=== PATIENT | female | born 2000 | race Caucasian/White ===

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

== ENCOUNTER 2022-01-09 20:16 | Inpatient (IN) | payer MEDICAID, SELFPAY ==
[2022-01-09] VITALS (43 sets, daily range): BP systolic 86–142; BP diastolic 45–72; PULSE 70–134; RESP 11–28; TEMP 36.8; O2SAT 86–100
--- NOTE | 2022-01-09 20:15 | RT.EKG_ITS ---
APPROVED REPORT Exam: Resting ECG Reason for Exam: od Patient Location: E HR:115 bpm ECG Measurements Heart Rate 115 AXIS NH 126 P 46 QRSd 76 QRS 52 QT 303 T 37 QTc 419 Conclusion Sinus tachycardia...rate> 99 Physician: no stemi, t wave peaking in V1. no significant st elevation or depression
[2022-01-09] MEDS: Normal Saline 1,000 ML 1000 ML IV ×2 (20:31→22:21)
[2022-01-09 20:42] LABS: Abs Immature Grans 0.02 10^3/uL (0.0-0.06); Absolute Basophil Count 0.04 10^3/uL (0.0-0.2); Absolute Eosinophil Count 0.17 10^3/uL (0.0-0.7); Absolute Lymphocyte Count 1.85 10^3/uL (1.2-3.4); Absolute Monocyte Count 0.72 10^3/uL (0.1-0.8); Absolute Neutrophil Count 5.57 10^3/uL (1.2-6.7); Basophils % 0.5; HCT 41.7 % (36.0-46.0); HGB 13.5 g/dL (11.2-15.7); Immature Grans % 0.2; Lymphocytes % 22.1; MCH 26.7 pg (27.0-33.0); MCHC 32.4 % (32.0-36.0); MCV 82 fL (80-95); Monocytes % 8.6; Neutrophils % 66.6; Platelet Count 298 10^3/uL (130-400); RBC 5.06 10^6/uL (3.93-5.22); RDW 12.4 % (11.7-14.6); RDW-SD 37.8 fL; WBC 8.37 10^3/uL (4.4-10.8)
--- NOTE | 2022-01-09 20:43 | ED.GENADUL_ITS ---
Discharge Plan Disposition Patient Disposition: [facility] INPATIENT Condition: Serious Discharge Details Clinical Impression: Overdose, Altered mental status, Suicide attempt Admit Date/Time: 01/09/22 22:07 Admit Provider: Jose Manuel Berkowitz Attending Provider: Jose Manuel Berkowitz Primary Care Provider: Frank Richter ED Provider: Azael Dowell Discharge Data Discharge Date/Time-TO BE ENTERED AT DEPARTURE: 01/10/22 00:10 Medical Decision Making This is a 21-year-old female who is transitioning to male, who presents today for evaluation of overdose. Patient has a past medical history of OCD, depression, previous self-harm, who presents via EMS. Patient and EMS state that 4 hours ago the patient states that he may have taken extra Lamictal. he take 25 mg Lamictal 3 times a day per the patient, and there were 50 missing tablets this evening. Patient states that he is unsure if I took any, but I am concerned I might have. In addition to this, the patient's risperidone bottle was empty, but it should have been empty 10 days ago if he has been taking it as directed but he states that he does not take as directed and may have had some extra. He denies any IV or illicit drug use. He does admit to previous self-harm, including previous superficial cutting. He states that he is not overly sure if he wants to end his life right now. He does not want hurt anyone else. He denies any chest pain abdominal pain or headache. He denies any numbness tingling or weakness. No other complaints at this time. He denies taking any other medication including aspirin or Tylenol. Physical exam demonstrates slightly drowsy patient, no evidence of new self-harm on the arms, but old scars are certainly present. No hyperreflexia. No clonus, no leadpipe rigidity. EKG shows slight peaking of T waves in V2, no STEMI, intervals are stable. Poison control was contacted and recommended supportive care. We will rehydrate, evaluate potential concerning etiologies, monitor closely and reassess. 10:45 PM Laboratory work-up reviewed the patient's laboratory work-up is returned very reassuring. No white count, bandemia or left shift. Electrolytes normal, CPK normal, salicylate and acetaminophen negative, urinary drug screen negative. Alcohol negative. EKG demonstrates no significant rhythm or interval abnormality. He does have mild sinus tachycardia. Patient remains notably fatigued, but he is arousable, saturating well, shows no signs of airway compromise stage. Discussed the case with the hospitalist, the patient will need prolonged observation and monitoring until he can be medically cleared. Suspect that he certainly did take medications as. We will continue to monitor and admit. Patient will be given continued fluids for rehydration. 11:22 PM Patient remained stable, however oxygenation slightly dropped. The patient did drop to the high 80s, 2 L of supplemental oxygen was applied and she tolerated this well, oxygenation is now 97%. Blood pressure remained stable, heart rate has come down to the 80s. Patient is still notably fatigued, but he is arousable still. We will place her on MedSurg overflow to the ICU for continued monitoring there. Dr. Berkowitz agrees with plan and will be placing admission orders. No indication for emergent intubation at this stage, however I did make it clear to the hospitalist and nursing will continue to make it clear to the ICU staff for continued monitoring and that he does have a decline in her oxygen saturation or respirations that we may need to reevaluate potential intubation in the future although this is not currently indicated at this stage of his management. I have extensively reviewed the treatment plan with the patient. I have addressed all patient concerns at this time. I have also discussed the plan with the admitting physician and they agree with the current assessment and plan and have agreed to assume responsibility for the patient. All parties demonstrate verbal understanding and agreement with our assessment and plan at this time. The documentation in this chart was dictated using [employer] dictation software. Please excuse any dictation errors. HPI General Date/Time Provider Initiated Documentation: 01/09/22 20:27 . HPI Narrative: This is a 21-year-old female who is transitioning to male, who presents today for evaluation of overdose. Patient has a past medical history of OCD, depression, previous self-harm, who presents via EMS. Patient and EMS state that 4 hours ago the patient states that he may have taken extra Lamictal. he take 25 mg Lamictal 3 times a day per the patient, and there were 50 missing tablets this evening. Patient states that he is unsure if I took any, but I am concerned I might have. In addition to this, the patient's risperidone bottle was empty, but it should have been empty 10 days ago if he has been taking it as directed but he states that he does not take as directed and may have had some extra. He denies any IV or illicit drug use. He does admit to previous self-harm, including previous superficial cutting. He states that he is not overly sure if he wants to end his life right now. He does not want hurt anyone else. He denies any chest pain abdominal pain or headache. He denies any numbness tingling or weakness. No other complaints at this time. He denies taking any other medication including aspirin or Tylenol. Related Data Home Medications Medication Instructions Recorded Confirmed clonidine HCl 0.1 mg tablet 0.1 mg PO BID 08/30/21 09/18/21 escitalopram oxalate 10 mg tablet 10 mg PO DAILY 08/30/21 09/18/21 (Lexapro) prazosin 2 mg capsule 2 mg PO HS 08/30/21 09/18/21 lamotrigine 25 mg tablet 75 tab PO HS 12/31/21 01/09/22 risperidone 0.5 mg tablet 0.5 tab PO HS 12/31/21 01/09/22 testosterone cypionate 200 mg/mL 1 applic IM QWEEK 12/31/21 01/09/22 intramuscular oil Allergies Allergy/AdvReac Type Severity Reaction Status Date / Time wool AdvReac Intermediate Hives Unverified 01/09/22 20:25 General Stated Complaint: OD/Poison ADRIANA: 2 Review of Systems All systems reviewed & are unremarkable except as noted in HPI and below PFSH All Active Problems (Updated 01/09/22 @ 23:25 by Azael Dowell DO) Overdose (Acute) Altered mental status (Acute) Suicide attempt (Acute) OD (overdose of drug) (Acute) Deliberate self-cutting (Acute) 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 Depression (Chronic) 09/2021-Suidice attempt, clonidine overdose, hospitalized at [facility]-required short term intubation Tonsillar hypertrophy (Acute) Sensorineural hearing loss, unilateral, right ear, with unrestricted hearing on the contralateral side (Acute) OCD (obsessive compulsive disorder) (Acute) Medical History Clonidine overdose Depression Transgender Family History Mother Essential hypertension Heart disease Hyperlipidemia Father COPD (chronic obstructive pulmonary disease) Sister Asthma Brother No problems noted. Grandfather Diabetes Essential hypertension Heart disease Hyperlipidemia Grandfather Neoplasm LUNG Grandmother No problems noted. Grandmother Diabetes Essential hypertension Heart disease Hyperlipidemia Neoplasm BREAST Stroke Social History Smoking/Tobacco Use Status: Never Smoking risk assessment performed?: Yes Alcohol Intake: never Drug use: Never Substance use type: does not use Do you feel safe at home: Yes (Lives alone) Do you feel safe in your relationship?: No Additional Social history: Patient unable to give further details at this time. Exam Narrative Exam Narrative: 1.Const: Well-nourished, Well-developed, appearing stated age 2.Eyes: PERRL, no conjunctival injection, and symmetrical lids. 3.ENT: Atraumatic external nose and ears. Moist MM. Neck: Symmetric, trachea midline, No thyromegaly. Patient demonstrates good movement of cervical neck. There is no nuchal rigidity, no nuchal tenderness. Patient is able to flex the neck without any difficulty or significant pain. Negative Kernig's and Brudzinski sign. 4.CVS: +S1/S2, No murmurs or gallops. Peripheral pulses 2+ and equal in all extremities. Brisk capillary refill in all extremities. 5.RESP: Unlabored respiratory effort. Clear to auscultation bilaterally. No wheezes rales or rhonchi 6.GI: Soft, Nontender/Nondistended, No hepatosplenomegaly. No guarding or rebound. 7.MSK: Normocephalic/Atraumatic, Extremities w/o deformity or ttp No cyanosis or clubbing, Normal movement of all extremities 8.Skin: Warm, Dry. Previous self-inflicted wounds on the upper extremities, no active lacerations. No evidence of bleeding. 9.Neuro: sample mounter II-XII grossly intact. Sensation grossly intact, no focal neurologic deficits. All 6 cardinal planes of vision are fully intact. No evidence of rotatory or vertical nystagmus. The patient demonstrated a normal [id number], good dexterity. There was no evidence of dysdiadochokinesia. Patient was able to ambulate without difficulty. There was no wide-based gait. Romberg testing was normal. Clsb-[id number] testing was normal. Sensation was intact bilaterally as well as muscle strength bilaterally for all extremities. Patient was able to verbalize butter cup with no slurring, or miss pronunciation. 10.Psych: (AAO) x3. Slightly diminished affect, patient appears slightly sleepy, but is appropriate, able to answer all questions, and guarding airway very well. Course Vital Signs Vital signs: Vital Signs Temperature 36.8 C 01/09/22 20:17 Pulse 130 H 01/09/22 20:17 Respiratory Rate 19 01/09/22 20:17 Blood Pressure 142/62 H 01/09/22 20:17 Pulse Oximetry 98 01/09/22 20:17 Temperature 36.8 C 01/09/22 20:17 Temperature Source Skin 01/09/22 20:17 Pulse 130 H 01/09/22 20:17 Respiratory Rate 15 01/09/22 20:25 Respiratory Effort 01/09/22 20:25 Respiratory Depth Normal 01/09/22 20:25 Respiratory Pattern Normal 01/09/22 20:25 Blood Pressure 142/62 H 01/09/22 20:17 Blood Pressure Position Sitting 01/09/22 20:17 Pulse Oximetry 98 01/09/22 20:17 Oxygen Delivery Method Room Air 01/09/22 20:17 Oxygen Flow Rate 0 01/09/22 20:17
[2022-01-09 20:55] LABS: Creatine Kinase 71 U/L (26-192)
[2022-01-09 20:59] LABS: ALT 16 U/L (14-59); AST 11 U/L (15-37); Albumin 4.1 g/dL (3.4-5.0); Alkaline Phosphatase 88 U/L (46-116); Anion Gap 10.8 mmol/L (3-11); BUN 10 mg/dL (7-18); Bilirubin, Total 0.2 mg/dL (0.2-1.0); CO2 24.2 mmol/L (21.0-32.0); CREATININE 0.7 mg/dL (0.55-1.02); Chloride 104 mmol/L (98-107); Glucose 125 mg/dL (74-106); Magnesium 2.1 mg/dL (1.8-2.4); Potassium 3.5 mmol/L (3.5-5.1); Sodium 139 mmol/L (136-145)
[2022-01-09 21:02] LABS: ETHANOL BLOOD < 3.0 mg/dL (<10)
[2022-01-09 21:03] LABS: Salicylate < 2.8 mg/dL (<2.8)
[2022-01-09 21:05] LABS: Acetaminophen < 2 ug/mL (10-30)
--- NOTE | 2022-01-09 21:49 | W.PM.HP.N ---
Date of service: 01/09/22 Time of Service: 20:49 Assessment and Plan Assessment and plan (1) OD (overdose of drug): Status: Acute Assessment and plan: Probable drug OD, at this point manifesting with somnolence, soft BP and sinus tachycardia. Will continue general supportive measures with IVF, telemetry and continue to monitor hemodynamics. History of Present Illness History of Present Illness Chief Complaint: possible drug OD Narrative: 21 female transitioning to male, h/o depression, OCD, prior self-harm. This evening reported to family that she might have taken some extra Lamictal (per pill counts, 50 pills missing, but there is additional report that patient may not take meds as directed). EMS summoned. Here in ER patient noted to be somnolent but arousable, and repeated that she was not sure if she had taken any extra pills. Stated she was not sure if she had any active intent to harm. Exam of note otherwise for sinus tachycardia and superficial lacerations left forearm. Labs of note for normal CBC and electrolytes, and EKG with normal intervals (sinus tach). Alcohol, ASA and APAP negative, remainder UDS pending. I was asked to evaluate for admission. Patient arouses to voice during interview but somnolent and uncommunicative. 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 Grandfather Diabetes Essential hypertension Heart disease Hyperlipidemia Grandfather Neoplasm LUNG Grandmother No problems noted. Grandmother Diabetes Essential hypertension Heart disease Hyperlipidemia Neoplasm BREAST Stroke Social History Smoking/Tobacco Use Status: Never Smoking risk assessment performed?: Yes Alcohol Intake: never Drug use: Never Substance use type: does not use Do you feel safe at home: Yes (Lives alone) Do you feel safe in your relationship?: No Additional Social history: Patient unable to give further details at this time. Meds Allergies and Home Medications Allergies Allergy/AdvReac Type Severity Reaction Status Date / Time wool AdvReac Intermediate Hives Unverified 01/09/22 20:25 Home Medications Medication Instructions Recorded Confirmed Type clonidine HCl 0.1 mg tablet 0.1 mg PO BID 08/30/21 09/18/21 History escitalopram oxalate 10 mg tablet 10 mg PO DAILY 08/30/21 09/18/21 History (Lexapro) prazosin 2 mg capsule 2 mg PO HS 08/30/21 09/18/21 History lamotrigine 25 mg tablet 75 tab PO HS 12/31/21 01/09/22 History risperidone 0.5 mg tablet 0.5 tab PO HS 12/31/21 01/09/22 History testosterone cypionate 200 mg/mL 1 applic IM QWEEK 12/31/21 01/09/22 History intramuscular oil Exam Narrative Exam Narrative: 98/54, 97, 36.8, 14, 96% RA. HEENT atraumatic; neck supple; lungs clear; heart tachy/regual w/o MRG; abdomen +BS, soft and NT; extremities w/o edema, multiple recent superficial transverse lacerations left forearm; neuro somnolent, arouses to voice, moves all 4s Results Labs Result diagrams: 01/09/22 20:29 01/09/22 20:29 Labs: Laboratory Results - last 24 hr 01/09/22 01/09/22 01/09/22 20:29 20:29 20:29 WBC 8.37 RBC 5.06 Hgb 13.5 Hct 41.7 MCV 82 MCH 26.7 L MCHC 32.4 RDW 12.4 Plt Count 298 MPV 11.0 Immature Gran % 0.2 Neutrophils % 66.6 Lymphocytes % 22.1 Monocytes % 8.6 Eosinophils % 2.0 Basophils % 0.5 Nucleated RBC % 0.0 Absolute Neutrophils 5.57 Absolute Lymphocytes 1.85 Absolute Monocytes 0.72 Absolute Eosinophils 0.17 Absolute Basophils 0.04 Sodium 139 Potassium 3.5 Chloride 104 Carbon Dioxide 24.2 Anion Gap 10.8 BUN 10 Creatinine 0.7 Estimated GFR/1.73 m2 >= 60.00 Glucose 125 H Calcium 9.0 Magnesium 2.1 Total Bilirubin 0.2 AST 11 L ALT 16 Alkaline Phosphatase 88 Creatine Kinase Total Protein 8.0 Albumin 4.1 Salicylates < 2.8 Acetaminophen < 2 Ethyl Alcohol < 3.0 01/09/22 20:29 WBC RBC Hgb Hct MCV MCH MCHC RDW Plt Count MPV Immature Gran % Neutrophils % Lymphocytes % Monocytes % Eosinophils % Basophils % Nucleated RBC % Absolute Neutrophils Absolute Lymphocytes Absolute Monocytes Absolute Eosinophils Absolute Basophils Sodium Potassium Chloride Carbon Dioxide Anion Gap BUN Creatinine Estimated GFR/1.73 m2 Glucose Calcium Magnesium Total Bilirubin AST ALT Alkaline Phosphatase Creatine Kinase 71 Total Protein Albumin Salicylates Acetaminophen Ethyl Alcohol Last Vital Signs Temp 36.8 C 01/09/22 20:17 Pulse 93 H 01/09/22 20:45 Resp 14 01/09/22 20:50 BP 98/54 L 01/09/22 20:45 Pulse Ox 96 01/09/22 20:50
[2022-01-09 22:42] LABS: *AMPHETAMINES SCREEN URINE Negative (Negative); *BARBITURATES SCREEN URINE Negative (Negative); *BENZODIAZEPINES SCREEN URINE Negative (Negative); Cannabinoids THC Negative (Negative); Cocaine Screen,Urine Negative (Negative); METHADONE URINE SCREEN Negative (Negative); OPIATES URINE SCREEN Negative (Negative)
[2022-01-09 22:48] LABS: Tricyclic Antidepressants Negative (Negative)
[2022-01-10] VITALS (31 sets, daily range): BP systolic 55–125; BP diastolic 38–85; PULSE 73–120; RESP 9–17; TEMP 36.2–37.5; O2SAT 99–100
[2022-01-10] MEDS: Lactated Ringers 1,000 ML 150 ML IV ×4 (00:43→20:02)
[2022-01-10 07:53] LABS: Abs Immature Grans 0.03 10^3/uL (0.0-0.06); Absolute Basophil Count 0.02 10^3/uL (0.0-0.2); Absolute Eosinophil Count 0.05 10^3/uL (0.0-0.7); Absolute Lymphocyte Count 1.32 10^3/uL (1.2-3.4); Absolute Neutrophil Count 6.75 10^3/uL (1.2-6.7); Basophils % 0.2; Eosinophils % 0.6; HCT 38.3 % (36.0-46.0); HGB 12.1 g/dL (11.2-15.7); Immature Grans % 0.3; Lymphocytes % 15.1; MCH 26.7 pg (27.0-33.0); MCHC 31.6 % (32.0-36.0); MCV 84 fL (80-95); MPV 10.9 fL (8.0-11.0); Monocytes % 6.8; Platelet Count 253 10^3/uL (130-400); RBC 4.54 10^6/uL (3.93-5.22); RDW 12.5 % (11.7-14.6); RDW-SD 38.4 fL; WBC 8.77 10^3/uL (4.4-10.8)
[2022-01-10 08:11] LABS: ALT 13 U/L (14-59); AST 10 U/L (15-37); Albumin 3.4 g/dL (3.4-5.0); Alkaline Phosphatase 71 U/L (46-116); Anion Gap 5.7 mmol/L (3-11); BUN 3 mg/dL (7-18); Bilirubin, Direct 0.1 mg/dL (0.0-0.2); Bilirubin, Total 0.3 mg/dL (0.2-1.0); CO2 28.3 mmol/L (21.0-32.0); CREATININE 0.9 mg/dL (0.55-1.02); Calcium 8.2 mg/dL (8.5-10.1); Chloride 106 mmol/L (98-107); Glucose 105 mg/dL (74-106); Magnesium 1.9 mg/dL (1.8-2.4); Potassium 3.7 mmol/L (3.5-5.1); Sodium 140 mmol/L (136-145); Total Protein 6.9 g/dL (6.4-8.2)
[2022-01-10 10:13] LABS: Source Nasal/Nares
[2022-01-10 11:04] LABS: COVID-19 PCR Negative (Negative)
--- NOTE | 2022-01-10 11:22 | INITIAL_ITS ---
- If Service Date Differs Date of service: 01/10/22 Time of Service: 11:22 Care Management Initial Assess REASON FOR HOSPITALIZATION:: OD PAST MEDICAL HISTORY/PAST SURGICAL HISTORY:: All Active Problems (Updated 01/09/22 @ 22:02 by Jos eManuel Berkowitz MD). OD (overdose of drug) (Acute). Deliberate self-cutting (Acute). Transgender (Acute). female to male. Depression (Chronic). 09/2021-Suidice attempt, clonidine overdose, hospitalized at [facility]-required short term intubation. Tonsillar hypertrophy (Acute). Sensorineural hearing loss, unilateral, right ear, with unrestricted hearing on the contralateral side (Acute). OCD (obsessive compulsive disorder) (Acute). Medical History. Clonidine overdose. Depression. Transgender PREVIOUS FUNCTIONAL STATUS/SOCIAL/FAMILY SUPPORTS:: Júnior [place] in a [place] in [facility]. He has 2 sisters, but stated he is not close to them or his parents. He identifies [facility] as his only source of support. He is independent at baseline. CURRENT FUNCTIONAL STATUS:: Júnior was sitting up in bed when CM met with him. He appeared sad and was very soft spoken, answering questions but not volunterering information . During the conversation CM asked if he remembers what happened yesterday and he stated that he did not. He acknowledged being very sleepy now and believes he took extra medication. He was unsure why. CM explained that if he is medically cleared tomorrow, he will likley be seen by an [facility] crisis screener. When various possible outcomes were discussed, Júnior informed CM that he would not feel safe going home. He indicated that he would like to go to an inpatient psychiatric treatment facility. Has patient been provided with info about the portal/API?: Yes Did the patient sign up for the portal?: Yes (previously) CODE STATUS:: Full Code INSURANCE COVERAGE / FINANCIAL ISSUES:: Medicaid CURRENT HOME/COMMUNITY SERVICES/EQUIPMENT:: lives in transitional housing PRIMARY CARE PHYSICIAN:: Frank Richter POTENTIAL DISCHARGE NEEDS:: Follow up with PCP and plan of care. It is possible Júnior will require inpatient admission for psychiatric stabilization if this was determined to be a suicide. attempt. PATIENT/FAMILY EDUCATION NEEDS:: review of discharge instructions, follow up plan, medication management, Ask Me Three TRANSPORTATION:: to be determined by disposition PLAN:: Júnior's discharge plan is unclear at this time as he has not been screened by mental health. Júnior verbalizes being uncertain if he actually took and OD of his medication and if so, if it was his intention to harm himself. CM will continue to provide support to Júnior and hid discharge needs.
--- NOTE | 2022-01-10 11:38 | PGE_ITS ---
Date of Service Date of service: 01/10/22 Time of Service: 10:38 Assessment and Plan Assessment and plan (1) OD (overdose of drug): Status: Acute Assessment and plan: Patient is not able to tell us the circumstances behind this overdose. Checking lamictal level - it is a send out. Will monitor mental status until patient back to baseline, then consult mental health. Continue CPSO. Ok to permit a clear liquid diet. Subjective Subjective Interval history since last seen: Júnior states that he is still feeling drowsy and had an abdominal pain (mid- abdominal). Had dry heaves, but no vomiting this am. No dizziness, chest pain, shortness of breath. Per Poison Control, most cardiac side effects are expected to be within the first 6 hrs of ingestion. Júnior thinks he took 40-50 25 mg pills of lamictal, but does not remember. He also does not remember why he took so many and states that he has a really bad memory for some reason. He is on lamictal for bipolar disorder. Exam Narrative Exam Narrative: General: A&Ox3, poor recall of events yesterday, no obvious focal deficits HEENT: EOMI, MMM Heart: RRR, no m/r/g Lungs: CTAB Abdomen: soft, nontender, nondistended Extremities: no edema BLEs, BUE (L>R) superficial healing incisions, no active bleeding or sign of infection Objective Last Vital Signs Temp 37 C 01/10/22 11:35 Pulse 108 H 01/10/22 11:00 Resp 16 01/10/22 11:35 BP 105/69 01/10/22 11:00 Pulse Ox 99 01/10/22 11:35 Laboratory Results - last 24 hr 01/09/22 01/09/22 01/09/22 20:29 20:29 20:29 WBC 8.37 RBC 5.06 Hgb 13.5 Hct 41.7 MCV 82 MCH 26.7 L MCHC 32.4 RDW 12.4 Plt Count 298 MPV 11.0 Immature Gran % 0.2 Neutrophils % 66.6 Lymphocytes % 22.1 Monocytes % 8.6 Eosinophils % 2.0 Basophils % 0.5 Nucleated RBC % 0.0 Absolute Neutrophils 5.57 Absolute Lymphocytes 1.85 Absolute Monocytes 0.72 Absolute Eosinophils 0.17 Absolute Basophils 0.04 Sodium 139 Potassium 3.5 Chloride 104 Carbon Dioxide 24.2 Anion Gap 10.8 BUN 10 Creatinine 0.7 Estimated GFR/1.73 m2 >= 60.00 Glucose 125 H Calcium 9.0 Magnesium 2.1 Total Bilirubin 0.2 Conjugated Bilirubin AST 11 L ALT 16 Alkaline Phosphatase 88 Creatine Kinase Total Protein 8.0 Albumin 4.1 Salicylates < 2.8 Urine Opiates Screen Urine Methadone Screen Acetaminophen < 2 Ur Barbiturates Screen Ur Tricyclics Screen Ur Amphetamines Screen U Benzodiazepines Scrn Urine Cocaine Screen Ur THC Screen Ethyl Alcohol < 3.0 COVID-19 Source SARS-CoV-2 (PCR) 01/09/22 01/09/22 01/10/22 20:29 22:20 07:50 WBC RBC Hgb Hct MCV MCH MCHC RDW Plt Count MPV Immature Gran % Neutrophils % Lymphocytes % Monocytes % Eosinophils % Basophils % Nucleated RBC % Absolute Neutrophils Absolute Lymphocytes Absolute Monocytes Absolute Eosinophils Absolute Basophils Sodium 140 Potassium 3.7 Chloride 106 Carbon Dioxide 28.3 Anion Gap 5.7 BUN 3 L Creatinine 0.9 Estimated GFR/1.73 m2 >= 60.00 Glucose 105 Calcium 8.2 L Magnesium 1.9 Total Bilirubin 0.3 Conjugated Bilirubin 0.1 AST 10 L ALT 13 L Alkaline Phosphatase 71 Creatine Kinase 71 Total Protein 6.9 Albumin 3.4 Salicylates Urine Opiates Screen Negative Urine Methadone Screen Negative Acetaminophen Ur Barbiturates Screen Negative Ur Tricyclics Screen Negative Ur Amphetamines Screen Negative U Benzodiazepines Scrn Negative Urine Cocaine Screen Negative Ur THC Screen Negative Ethyl Alcohol COVID-19 Source SARS-CoV-2 (PCR) 01/10/22 01/10/22 07:50 10:00 WBC 8.77 RBC 4.54 Hgb 12.1 Hct 38.3 MCV 84 MCH 26.7 L MCHC 31.6 L D RDW 12.5 Plt Count 253 MPV 10.9 Immature Gran % 0.3 Neutrophils % 77.0 Lymphocytes % 15.1 Monocytes % 6.8 Eosinophils % 0.6 Basophils % 0.2 Nucleated RBC % 0.0 Absolute Neutrophils 6.75 H Absolute Lymphocytes 1.32 Absolute Monocytes 0.60 Absolute Eosinophils 0.05 Absolute Basophils 0.02 Sodium Potassium Chloride Carbon Dioxide Anion Gap BUN Creatinine Estimated GFR/1.73 m2 Glucose Calcium Magnesium Total Bilirubin Conjugated Bilirubin AST ALT Alkaline Phosphatase Creatine Kinase Total Protein Albumin Salicylates Urine Opiates Screen Urine Methadone Screen Acetaminophen Ur Barbiturates Screen Ur Tricyclics Screen Ur Amphetamines Screen U Benzodiazepines Scrn Urine Cocaine Screen Ur THC Screen Ethyl Alcohol COVID-19 Source Nasal/Nares SARS-CoV-2 (PCR) Negative
[2022-01-11] MEDS: Lactated Ringers 1,000 ML 150 ML IV ×2 (02:19→08:59)
[2022-01-11 03:19] VITALS: BP 105/69; PULSE 64; RESP 18; TEMP 36.6; O2SAT 97
[2022-01-11 07:00] VITALS: BP 107/69; PULSE 94; RESP 20; TEMP 36.5; O2SAT 98
[2022-01-11 07:09] VITALS: PULSE 72
[2022-01-11 10:38] VITALS: PULSE 105
--- NOTE | 2022-01-11 16:44 | PDOC.CMSAFE ---
- If Service Date Differs Date of service: 01/11/22 Time of Service: 16:44 Care Management Safety Plan Status: Voluntary - Reason for Wait Reason for Wait: Inpatient Admission VOLUNTARY FOR INPATIENT PSYCHIATRIC STABILIZATION. Patient is appropriate in all interactions since arriving at [facility]; Pt has demonstrated appropriate coping and communication skills, has articulated his needs and concerns and is fully engaged during staff interactions. Safety plan has been established with patient, and care team, to adhere to patient goals, identify restrictions based on behavioral status, address nutrition, and determine allowed personal belongings, tools for hygiene and personal care. Determine level of activity including ambulation, level of supervision, visitors, and determine privileges based on behaviors and level of engagement by pt. SAFETY PLAN: 1. Will remain on suicide precautions. In Paper Clothes 2. Will remain in room under direct supervision of one-on-one staff at all times provided by CPSO; PIPER, SALON PROFESSIONAL curb worker. 3. May have paper cups, plates, finger foods as well as a cardboard spoon with which to eat meals. 4. Follow [facility] Management of the Admitted Behavioral Health Patient policy. 5. Shower permitted with escort at RN discretion. 6. No personal belongings-soft items permitted at RN discretion. 7. Visitors-none at this time. 8. Activities: soft cart items approved per RN discretion. 9. Bathroom privileges available in room without limitation on M/S. 10. Phone: contact limited to sister at this time, via cordless phone at RN discretion. 11. Due to VOLUNTARY status, if patient wishes to leave [facility], staff will contact [facility] Crisis Screener ([phone]) and On-Call District Manager Primary Care Sales ([phone]) as soon as possible. In the event of elopement, notify [facility] Police ([phone]). Patient is currently voluntarily at [facility] and seeking inpatient admission when a bed becomes available. [facility] Frontline Clerk Cashier will continue seeking placement. Please contact the Coverage Specialist District Manager Primary Care Sales ([phone]) and [facility] Clerk Cashier ([phone]) for any needed changes in the Safety Plan. Safety plan has been provided to interdepartmental care team.
--- NOTE | 2022-01-11 17:08 | W.PM.PROGNOT ---
Date of Service Date of service: 01/11/22 Time of Service: 15:00 Assessment and Plan Assessment and plan (1) OD (overdose of drug): Status: Acute Assessment and plan: Patient is not able to tell us the circumstances behind this overdose. Lamictal level not back yet Mental status is back to baseline; seen by mental health, awaiting acceptance @ [facility]. Continue CPSO. Vital signs are stable Ok to permit solid diet. Agreeable and in fact excited to go to [facility], he has been there before and felt it is beneficial and comfortable for him. Case mgt is working on acceptance/transfer. (2) Deliberate self-cutting: Status: Acute Assessment and plan: Superficial cuts to bilateral lower arms, not hot, no pus, no dressing neededl; denies pain, will monitor for signs of infection (3) Transgender: Status: Acute Assessment and plan: Transitioning from female to male; taking testosterone - will need medication from home to go with him to [place] Subjective Subjective Patient reports: no new complaints Exam Narrative Exam Narrative: General: A&Ox3, poor recall of events yesterday, no obvious focal deficits HEENT: EOMI, MMM Heart: RRR, no m/r/g Lungs: CTAB Abdomen: soft, nontender, nondistended Extremities: no edema BLEs, BUE (L>R) superficial healing incisions, no active bleeding or sign of infection Objective Last Vital Signs Temp 36.5 C 01/11/22 07:00 Pulse 105 H 01/11/22 10:38 Resp 20 01/11/22 07:00 BP 107/69 01/11/22 07:00 Pulse Ox 98 01/11/22 07:00 Reviewed Pertinent PMH: Yes
[2022-01-12 10:51] VITALS: BP 108/76; PULSE 84; RESP 16; TEMP 36.7; O2SAT 96
[2022-01-12 12:59] LABS: Lamotrigine 15.8 mcg/mL (2.5 - 15.0)
--- NOTE | 2022-01-12 13:03 | NUR.NOTE ---
Nursing Note: Patient made aware that the patients home medication- Testosterone Cypionate 200Mg/mL, is now available here. Patient states he takes 250mg at home. The order on the label states Inject 0.5mL into the muscle once weekly. This RN called Bruno Govea in [facility] to verify dosage. Pharmacist verified that the dose should be 0.5mL, which is 100mg weekly. Patient agreed to take this dose. Charge nurse notified.
--- NOTE | 2022-01-12 14:48 | PDOC.MHCN ---
Date of service: 01/11/22 Time of Service: 13:48 Mental Health Crisis Note Presenting Issue How did you arrive at the ED and why did you come: Pt arrived on 01.09.2022 after an unintentional overdose of her medications. Pt reported that they blacked out. Precipitating Factors Pt denied SI at the time of the assessment but rated their risk if they were to go home an 8/10 due ot not knowing when they would do it again. Disposition BEHAVIOR: Pt is calm, cooperative, and soft spoken. They were engaged appropriately with their CPSO when this clinician entered the room. EYE CONTACT: Pt made good eye contact. MOOD: Pt's mood appeared happy and engaged with CPSO. AFFECT: Pt's affect is normal. APPETITE: Pt reported they are eating fine. SLEEP(trouble falling/staying asleep: Pt reported that they are struggling to sleep as they are seeing people without faces and hearing voices in the davies. Plan PT will remain at [facility] and be assessed daily by [facility]. Due to Pt's report and observed disassociation it is this clinician's belief that they pose a risk to self if they returned home. Signature Clinician's Name/Title: Suzy Newsome MS, [facility] Emergency Services Clinician, [facility]
--- NOTE | 2022-01-12 16:09 | PGE_ITS ---
Date of Service Date of service: 01/12/22 Time of Service: 15:10 Assessment and Plan Assessment and plan (1) OD (overdose of drug): Status: Acute Assessment and plan: Mental status is back to baseline; medically cleared seen by mental health, awaiting acceptance @ [facility]. Continue CPSO. Vital signs are stable Ok to permit solid diet. Agreeable and in fact excited to go to [facility], he has been there before and felt it is beneficial and comfortable for him. Case mgt is working on acceptance/transfer. (2) Deliberate self-cutting: Status: Acute Assessment and plan: Superficial cuts to bilateral lower arms, not hot, no pus, no dressing neededl; denies pain, will monitor for signs of infection (3) Transgender: Status: Acute Assessment and plan: Transitioning from female to male; taking testosterone - will need medication from home to go with him to [place] Weekly dose given today Discussed with DR Flowers Subjective Subjective Patient reports: no new complaints, tolerating liquids well, tolerating a regular diet and afebrile Exam Const General: cooperative, healthy appearing and comfortable Nutritional Appearance: average body habitus Orientation: alert, awake and oriented x3 HENMT Head: normal to inspection and normocephalic Mouth: oral mucosae normal Resp Effort & Inspection: normal respiratory effort Auscultation: clear to auscultation bilaterally Cardio Rate: regular rate Rhythm: regular rhythm Neuro General: patient alert and patient awake Extrem General: normal to inspection and full ROM Objective Last Vital Signs Temp 36.7 C 01/12/22 10:51 Pulse 84 01/12/22 10:51 Resp 16 01/12/22 10:51 BP 108/76 01/12/22 10:51 Pulse Ox 96 01/12/22 10:51 Laboratory Results - last 24 hr 01/10/22 10:05 Lamotrigine 15.8
--- NOTE | 2022-01-12 16:13 | PDOC.CMSAFE ---
- If Service Date Differs Date of service: 01/12/22 Time of Service: 16:13 Care Management Safety Plan Status: Voluntary - Reason for Wait Reason for Wait: Inpatient Admission VOLUNTARY FOR INPATIENT PSYCHIATRIC STABILIZATION. Patient is appropriate in all interactions since arriving at [facility]; Pt has demonstrated appropriate coping and communication skills, has articulated his needs and concerns and is fully engaged during staff interactions. Safety plan has been established with patient, and care team, to adhere to patient goals, identify restrictions based on behavioral status, address nutrition, and determine allowed personal belongings, tools for hygiene and personal care. Determine level of activity including ambulation, level of supervision, visitors, and determine privileges based on behaviors and level of engagement by pt. SAFETY PLAN: 1. Will remain on suicide precautions. In Paper Clothes 2. Will remain in room under direct supervision of one-on-one staff at all times provided by CPSO; PIPER, SUPERVISOR CONCRETE PIPE PLANT sports internship. 3. May have paper cups, plates, finger foods as well as a cardboard spoon with which to eat meals. 4. Follow [facility] Management of the Admitted Behavioral Health Patient policy. 5. Shower permitted with escort at RN discretion. 6. No personal belongings-soft items permitted at RN discretion. 7. Visitors-none at this time. 8. Activities: soft cart items approved per RN discretion. 9. Bathroom privileges available in room without limitation on M/S. 10. Phone: contact limited to sister at this time, via cordless phone at RN discretion. 11. Due to VOLUNTARY status, if patient wishes to leave [facility], staff will contact [facility] Crisis Screener ([phone]) and On-Call Audio Visual Director ([phone]) as soon as possible. In the event of elopement, notify [facility] Police ([phone]). Patient is currently voluntarily at [facility] and seeking inpatient admission when a bed becomes available. [facility] Frontline Fiberglass Laminator will continue seeking placement. Please contact the Director Smb Sales Audio Visual Director ([phone]) and [facility] Fiberglass Laminator ([phone]) for any needed changes in the Safety Plan. Safety plan has been provided to interdepartmental care team.
--- NOTE | 2022-01-12 16:15 | PDOC.CMPRO ---
- If Service Date Differs Date of service: 01/12/22 Time of Service: 16:15 Care Management Progress Note S/O: Júnior was sitting up on his bed when CM met with him. He was pleasant but informed CHIARA that he is feeling really anxious today. CHIARA asked if he normallty takes any medication for that and he responded no. He stated that it just goes away on its own. One of the sources of stress for him today was the fact that he could not reach his family to let them know where he is. CHIARA consulted with his team and the decision was made to allow him to use his phone, in CM's presence, to message his sister. He verbalized feeling much better after he sent the message. P: Júnior is waiting for voluntary inpatient treatment at a psychiatric facility.
[2022-01-13 08:24] VITALS: BP 104/59; PULSE 86; RESP 16; TEMP 36.8; O2SAT 98
--- NOTE | 2022-01-13 10:59 | PDOC.CMPRO ---
- If Service Date Differs Date of service: 01/13/22 Time of Service: 10:59 Care Management Progress Note S/O: Júnior was sitting up on his bed eating lunch when CM met with him. He is alert, oriented and appropriate. He is not easy to engage in conversation. Júnior has been coloring and watching TV. Júnior accepted a puzzle from CM today. Júnior is waiting for voluntary placement at a psych facility. Júnior was screened by Christal at [facility] this morning. Per Christal, there is no bed availability at [place] today. CM will continue to support Júnior and his discharge planning needs. P: Júnior is waiting for voluntary inpatient treatment at a psychiatric facility.
--- NOTE | 2022-01-13 11:06 | PDOC.CMSAFE ---
- If Service Date Differs Date of service: 01/13/22 Time of Service: 11:06 Care Management Safety Plan Status: Voluntary - Reason for Wait Reason for Wait: Inpatient Admission VOLUNTARY FOR INPATIENT PSYCHIATRIC STABILIZATION. Patient is appropriate in all interactions since arriving at [facility]; Pt has demonstrated appropriate coping and communication skills, has articulated his needs and concerns and is fully engaged during staff interactions. Safety plan has been established with patient, and care team, to adhere to patient goals, identify restrictions based on behavioral status, address nutrition, and determine allowed personal belongings, tools for hygiene and personal care. Determine level of activity including ambulation, level of supervision, visitors, and determine privileges based on behaviors and level of engagement by pt. SAFETY PLAN: 1. Will remain on suicide precautions. In Paper Clothes 2. Will remain in room under direct supervision of one-on-one staff at all times provided by CPSO; PIPER, SENIOR FACILITIES MANAGER cash surrender calculator. 3. May have paper cups, plates, finger foods as well as a cardboard spoon with which to eat meals. 4. Follow [facility] Management of the Admitted Behavioral Health Patient policy. 5. Shower permitted with escort at RN discretion. 6. No personal belongings-soft items permitted at RN discretion. 7. Visitors-none at this time. 8. Activities: soft cart items approved per RN discretion. 9. Bathroom privileges available in room without limitation on M/S. 10. Phone: contact limited to sister at this time, via cordless phone at RN discretion. 11. Due to VOLUNTARY status, if patient wishes to leave [facility], staff will contact [facility] Crisis Screener ([phone]) and On-Call Inspector Wire Rope ([phone]) as soon as possible. In the event of elopement, notify [facility] Police ([phone]). Patient is currently voluntarily at [facility] and seeking inpatient admission when a bed becomes available. [facility] Frontline Materials Management Manager will continue seeking placement. Please contact the Industrial Commercial Groundskeeper Inspector Wire Rope ([phone]) and [facility] Materials Management Manager ([phone]) for any needed changes in the Safety Plan. Safety plan has been provided to interdepartmental care team.
--- NOTE | 2022-01-13 17:04 | W.PM.PROGNOT ---
Date of Service Date of service: 01/13/22 Time of Service: 16:05 Assessment and Plan Assessment and plan (1) OD (overdose of drug): Status: Acute Assessment and plan: Mental status is back to baseline; medically cleared seen by mental health, awaiting acceptance @ [facility]. Continue CPSO. Vital signs are stable Ok to permit solid diet. Agreeable and in fact excited to go to [facility], he has been there before and felt it is beneficial and comfortable for him. Case mgt is working on acceptance/transfer. (2) Deliberate self-cutting: Status: Acute Assessment and plan: Superficial cuts to bilateral lower arms, not hot, no pus, no dressing neededl; denies pain, will monitor for signs of infection (3) Transgender: Status: Acute Assessment and plan: Transitioning from female to male; taking testosterone - will need medication from home to go with him to [place] Weekly dose given today Discussed with DR Bell Subjective Subjective Patient reports: no new complaints, tolerating liquids well, tolerating a regular diet and afebrile Interval history since last seen: no behavioral issues Exam Const General: cooperative, healthy appearing and comfortable Nutritional Appearance: average body habitus Orientation: alert, awake and oriented x3 HENMT Head: normal to inspection and normocephalic Mouth: oral mucosae normal Resp Effort & Inspection: normal respiratory effort Auscultation: clear to auscultation bilaterally Cardio Rate: regular rate Rhythm: regular rhythm Neuro General: patient alert and patient awake Extrem General: normal to inspection and full ROM Objective Last Vital Signs Temp 36.8 C 01/13/22 08:24 Pulse 86 01/13/22 08:24 Resp 16 01/13/22 08:24 BP 104/59 L 01/13/22 08:24 Pulse Ox 98 01/13/22 08:24
[2022-01-13 20:12] VITALS: BP 109/72; PULSE 60; RESP 16; TEMP 36.7; O2SAT 98
[2022-01-14 08:07] VITALS: BP 108/75; PULSE 87; RESP 16; TEMP 36.6; O2SAT 98
[2022-01-14 08:29] LABS: Source Nasal/Nares
[2022-01-14 09:23] LABS: COVID-19 PCR Negative (Negative)
--- NOTE | 2022-01-14 09:40 | MHPN_ITS ---
Date of service: 01/13/22 Time of Service: 10:10 Mental Health Progress Note Progress Note Progress Note: Presenting Issue: Client arrived on 01.09.2022 after an unintentional overdose of her medications.? Client reported that they blacked out. Precipitating Factors Pt denied SI at the time of the assessment but rated their risk if they were to go home an 8/10 due ot not knowing when they would do it again. Disposition * Behavior: Calm and Cooperative *Eye Contact: Good *Mood: *Affect:Full/reactive *Appetite:Good *Sleep(trouble falling/staying asleep):Client reports poor sleep Plan(please elaborate and include that physician is consulted with plan and/or placement):Client will remain at [facility] until inpatient treatment can be found. BR, [facility], [place], [place] -No beds available Clinician's Name , Title, and Signature Christal Whitman Enhanced Crisis Fbi Special Agent Make sure that you are photocopying and submitting this to [facility] records Dept. to be scanned into chart.
--- NOTE | 2022-01-14 10:22 | CMDISCH_ITS ---
- If Service Date Differs Date of service: 01/14/22 Time of Service: 10:22 LACE Index Scoring Tool - Questions: Length of Stay (in days): 4 - 6 Acuity (Admit via E.D.?): Yes E.D. Visits: 5 - Answers: Total Score: 11 Risk of Readmission: High Risk Care Management Discharge Reason for Hospitalization: OD Discharge Plan: Discharge to [facility] for inpatient treatment. Júnior will transport via [facility]. Júnior will follow up with community providers and discharge plan of care as prescribed. Patient/Family Education Needs: Review discharge instructions, including ask me three. Services Needed at Discharge: Psychiatric Facility ([facility]), Transportation ([facility], arranged by CM) - Disposition Disposition: [place]
--- NOTE | 2022-01-14 10:40 | W.PM.DS.N ---
Date of service: 01/14/22 Time of Service: 09:40 DS: Diagnosis Discharge Diagnosis (1) OD (overdose of drug): Status: Acute (2) Deliberate self-cutting: Status: Acute (3) Transgender: Status: Acute Discharge Plan Disposition Patient Disposition: OTHER Condition: Serious Discharge Details Reason For Visit: Probable Drug OD Admit Date/Time: 01/10/22 09:15 Admit Provider: Jose Manuel Berkowitz Attending Provider: Jose Manuel Berkowitz Primary Care Provider: Frank Richter Hospital Course Hospital Course: 21 female transitioning to male, (prefers pronoun he/him) h/o depression, OCD, prior self-harm. He came to the emergency department via EMS 01/09/2022 stating he might have taken some extra Lamictal (per pill counts, 50 pills missing, but there is additional report that patient may not take meds as directed). EMS summoned. He was initially somnolent but arousable,. Stated he was not sure if he had any active intent to harm.?awake overnight monitor remained in normal sinus rhythm without ectopy, after inially having sinus tachycardia. He also has superficial lacerations left forearm, no bleeding, no sign of infection. Labs have been normal CBC and electrolytes, and EKG with normal intervals. Alcohol, ASA and APAP negative, remainder UDS was negative. Lamotrigine level 15.8, slightly above normal. Admitted to the hospital for observation of mental status and vital signs, all remained normal. He was seen by mental health. Patient requested [facility] for transfer. Provider to provider conversation, he was accepted. He remained here until a bed was available, one became available today. He will be transferred via EMS - [facility] not available today, for safety. Reviewed with Dr Bell Home Meds and New Rx's Prescriptions: No Action prazosin 2 mg capsule 2 mg PO HS clonidine HCl 0.1 mg tablet 0.1 mg PO BID escitalopram oxalate [Lexapro] 10 mg Tablet 10 mg PO DAILY lamotrigine 25 mg tablet 75 tab PO HS testosterone cypionate 200 mg/mL oil 1 applic IM QWEEK Label Comments: INJECT 0.5ML INTO THE MUSCLE ONCE WEEKLY risperidone 0.5 mg tablet 0.5 tab PO HS Discharge Instructions Stand Alone Forms: Nursing Discharge Form Activity:: Activity as Tolerated Equipment/Supplies:: No Equipment Needed Diet:: As Tolerated DS: Summary Time Spent with Patient providing and/or coordinating discharge services: Less than 30 minutes Status at Discharge Functional status at discharge: independent ambulation Overall status at discharge: patient is progressing back to baseline Mental Status: mental status grossly normal Speech and Movement: speech and movement normal Mood: congruent mood Affect: normal affect Exam Const General: cooperative, healthy appearing and comfortable Nutritional Appearance: average body habitus Orientation: alert, awake and oriented x3 HENMT Head: normal to inspection and normocephalic Mouth: oral mucosae normal Resp Effort & Inspection: normal respiratory effort Auscultation: clear to auscultation bilaterally Cardio Rate: regular rate Rhythm: regular rhythm Neuro General: patient alert and patient awake Extrem General: normal to inspection and full ROM Psych Mental Status: mental status grossly normal Speech and Movement: speech and movement normal Mood: congruent mood Affect: normal affect DS: Data Vitals/I&O Vitals and I&O: Vital Signs Temperature 36.6 C 01/14/22 08:07 Temperature Source Tympanic 01/14/22 08:07 Pulse 87 01/14/22 08:07 Pulse Rhythm Regular 01/14/22 07:17 Pulse 86 01/10/22 18:38 Respiratory Rate 16 01/14/22 08:07 Respiratory Effort 01/14/22 07:17 Respiratory Depth Normal 01/14/22 07:17 Respiratory Pattern Normal 01/14/22 07:17 Blood Pressure 108/75 01/14/22 08:07 Blood Pressure Mean 82 01/10/22 18:38 Blood Pressure Position Sitting 01/09/22 20:17 Pulse Oximetry 98 01/14/22 08:07 Oxygen Delivery Method Room Air 01/14/22 08:07 Oxygen Flow Rate 0 01/14/22 08:07 Pain Level 0 01/14/22 08:07 Comment 01/12/22 10:51 Intake & Output 01/13/22 01/13/22 01/14/22 11:59 23:59 11:59 Intake Total 110 / 110 110 / 110 Balance 110 / 110 110 / 110 Intake: Oral 110 / 110 110 / 110 Other: Voiding Methods Toilet Data Completed and Pending Labs on day of discharge: Labs from last 24 hours 01/14/22 08:20 COVID-19 Source Nasal/Nares SARS-CoV-2 (PCR) Negative PFSH All Active Problems Overdose (Acute) Altered mental status (Acute) Suicide attempt (Acute) OD (overdose of drug) (Acute) Deliberate self-cutting (Acute) 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 Depression (Chronic) 09/2021-Suidice attempt, clonidine overdose, hospitalized at [facility]-required short term intubation Tonsillar hypertrophy (Acute) Sensorineural hearing loss, unilateral, right ear, with unrestricted hearing on the contralateral side (Acute) OCD (obsessive compulsive disorder) (Acute) Medical History Clonidine overdose Depression Transgender Family History Mother Essential hypertension Heart disease Hyperlipidemia Father COPD (chronic obstructive pulmonary disease) Sister Asthma Brother No problems noted. Grandfather Diabetes Essential hypertension Heart disease Hyperlipidemia Grandfather Neoplasm LUNG Grandmother No problems noted. Grandmother Diabetes Essential hypertension Heart disease Hyperlipidemia Neoplasm BREAST Stroke Social History Smoking/Tobacco Use Status: Never Smoking risk assessment performed?: Yes Alcohol Intake: never Drug use: Never Substance use type: does not use Do you feel safe at home: Yes (Lives alone) Do you feel safe in your relationship?: No Additional Social history: Patient unable to give further details at this time.
--- NOTE | 2022-01-14 11:00 | W.PM.DS.N ---
Date of service: 01/14/22 Time of Service: 11:00 DS: Diagnosis Discharge Diagnosis (1) OD (overdose of drug): Status: Acute (2) Deliberate self-cutting: Status: Acute (3) Transgender: Status: Acute Discharge Plan Disposition Patient Disposition: OTHER Condition: Serious Discharge Details Reason For Visit: Probable Drug OD Admit Date/Time: 01/10/22 09:15 Admit Provider: Jose Manuel Berkowitz Attending Provider: Jose Manuel Berkowitz Primary Care Provider: Frank Rich[facility] Hospital Course Hospital Course: 21 female transitioning to male, (prefers pronoun he/him) h/o depression, OCD, prior self-harm. He came to the emergency department via EMS 01/09/2022 stating he might have taken some extra Lamictal (per pill counts, 50 pills missing, but there is additional report that patient may not take meds as directed). EMS summoned. He was initially somnolent but arousable,. Stated he was not sure if he had any active intent to harm.?awake overnight monitor remained in normal sinus rhythm without ectopy, after inially having sinus tachycardia. He also has superficial lacerations left forearm, no bleeding, no sign of infection. Labs have been normal CBC and electrolytes, and EKG with normal intervals. Alcohol, ASA and APAP negative, remainder UDS was negative. Lamotrigine level 15.8, slightly above normal. Admitted to the hospital for observation of mental status and vital signs, all remained normal. He was seen by mental health. Patient requested [facility] for transfer. Provider to provider conversation, he was accepted. He remained here until a bed was available, one became available today. He will be transferred via EMS - Director Public Policy not available today, for safety. Reviewed with Dr Bell Home Meds and New Rx's Prescriptions: No Action prazosin 2 mg capsule 2 mg PO HS clonidine HCl 0.1 mg tablet 0.1 mg PO BID escitalopram oxalate [Lexapro] 10 mg Tablet 10 mg PO DAILY lamotrigine 25 mg tablet 75 tab PO HS testosterone cypionate 200 mg/mL oil 1 applic IM QWEEK Label Comments: INJECT 0.5ML INTO THE MUSCLE ONCE WEEKLY risperidone 0.5 mg tablet 0.5 tab PO HS Discharge Instructions Stand Alone Forms: Nursing Discharge Form Activity:: Activity as Tolerated Equipment/Supplies:: No Equipment Needed Diet:: As Tolerated Discharge Orders Discharge Orders: Discharge Order (Routine); Ordered 01/14/22 Ordered By: Lawanda Husain Discharge Data Discharge Date/Time-TO BE ENTERED AT DEPARTURE: 01/14/22 11:21 DS: Summary Time Spent with Patient providing and/or coordinating discharge services: Less than 30 minutes Status at Discharge Functional status at discharge: independent ambulation Overall status at discharge: patient is progressing back to baseline Mental Status: mental status grossly normal Speech and Movement: speech and movement normal Mood: labile mood Affect: blunted Exam Psych Mental Status: mental status grossly normal Speech and Movement: speech and movement normal Mood: labile mood Affect: blunted DS: Data Vitals/I&O Vitals and I&O: Vital Signs Temperature 36.6 C 01/14/22 08:07 Temperature Source Tympanic 01/14/22 08:07 Pulse 87 01/14/22 08:07 Pulse Rhythm Regular 01/14/22 07:17 Pulse 86 01/10/22 18:38 Respiratory Rate 16 01/14/22 08:07 Respiratory Effort 01/14/22 07:17 Respiratory Depth Normal 01/14/22 07:17 Respiratory Pattern Normal 01/14/22 07:17 Blood Pressure 108/75 01/14/22 08:07 Blood Pressure Mean 82 01/10/22 18:38 Blood Pressure Position Sitting 01/09/22 20:17 Pulse Oximetry 98 01/14/22 08:07 Oxygen Delivery Method Room Air 01/14/22 08:07 Oxygen Flow Rate 0 01/14/22 08:07 Pain Level 0 01/14/22 08:07 Comment 01/12/22 10:51 Intake & Output 01/13/22 01/13/22 01/14/22 11:59 23:59 11:59 Intake Total 110 / 110 110 / 110 Balance 110 / 110 110 / 110 Intake: Oral 110 / 110 110 / 110 Other: Voiding Methods Toilet Data Completed and Pending Labs on day of discharge: Labs from last 24 hours 01/14/22 08:20 COVID-19 Source Nasal/Nares SARS-CoV-2 (PCR) Negative PFSH All Active Problems Overdose (Acute) Altered mental status (Acute) Suicide attempt (Acute) OD (overdose of drug) (Acute) Deliberate self-cutting (Acute) 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 Depression (Chronic) 09/2021-Suidice attempt, clonidine overdose, hospitalized at [facility]-required short term intubation Tonsillar hypertrophy (Acute) Sensorineural hearing loss, unilateral, right ear, with unrestricted hearing on the contralateral side (Acute) OCD (obsessive compulsive disorder) (Acute) Medical History Clonidine overdose Depression Transgender Family History Mother Essential hypertension Heart disease Hyperlipidemia Father COPD (chronic obstructive pulmonary disease) Sister Asthma Brother No problems noted. Grandfather Diabetes Essential hypertension Heart disease Hyperlipidemia Grandfather Neoplasm LUNG Grandmother No problems noted. Grandmother Diabetes Essential hypertension Heart disease Hyperlipidemia Neoplasm BREAST Stroke Social History Smoking/Tobacco Use Status: Never Smoking risk assessment performed?: Yes Alcohol Intake: never Drug use: Never Substance use type: does not use Do you feel safe at home: Yes (Lives alone) Do you feel safe in your relationship?: No Additional Social history: Patient unable to give further details at this time.
== END 2022-01-14 11:21 | disposition other institution (70) | DRG 918 ==
LOC: ER 23:25 → ICU 01-10 00:17 → MS 01-10 18:52
PROVIDERS: Internal Medicine; Nurse Practitioner Family; Admitting Provider General Practice; Emergency Provider Student in an Organized Health Care Education/Training Program; PCP Nurse Practitioner Family; Visit Provider General Practice
DX: T42.6X2A Poisoning by other antiepileptic and sedative-hypnotic drugs, intentional self-harm, initial encounter (principal); R00.0 Tachycardia, unspecified; R40.0 Somnolence; Z91.51 Personal history of suicidal behavior; F42.9 Obsessive-compulsive disorder, unspecified; F64.0 Transsexualism; H90.41 Sensorineural hearing loss, unilateral, right ear, with unrestricted hearing on the contralateral side; Z79.899 Other long term (current) drug therapy; R10.9 Unspecified abdominal pain; F31.9 Bipolar disorder, unspecified; R45.88 Nonsuicidal self-harm; S51.812A Laceration without foreign body of left forearm, initial encounter; S51.811A Laceration without foreign body of right forearm, initial encounter; X78.8XXA Intentional self-harm by other sharp object, initial encounter
CPT/HCPCS: 36415; 80048; 80053; 80076; 80175; 80307; 81025; 82550; 87635; 93005; 96360; 96361; 99285; 80320; 80329; 83735; 85025; 93010; 99219; 99231; 99232; 99233; 99238; G0378

== ENCOUNTER 2022-10-07 22:27 | Inpatient (IN) | payer MEDICAID, SELFPAY ==
[2022-10-07] VITALS (7 sets, daily range): BP systolic 131–140; BP diastolic 86–92; PULSE 92–128; RESP 14–22; TEMP 36.9; O2SAT 96–100
--- OUTSIDE RECORDS SUMMARY | 2022-10-07 22:37 | XMS_ITS | CCD ---
Author Name Unknown Address [address] [place] [address] [phone] Organization Unknown Address [address] [place] [address] [phone] Care Team Providers Care Die Repairer Forging Name Role Phone AWILDA WELDON MD Attending Physician [phone] AWILDA WELDON MD Er Physician [phone] Vital Signs Unknown or Not Available. Allergies Unknown or Not Available. Procedures Unknown or Not Available. History of Immunizations Unknown or Not Available. Problems Unknown or Not Available. Results COMPREHENSIVE METABOLIC PANE L (CMP) - Collect Date/Time: 03/06/2021 20:03 Test Name Code Test Result Test Units Test Ref Rang e GLUCOSE 2345-7 103 mg/dL L=70 H=116 BUN 3094-0 13 mg/dL L=6 H=25 CREATININE 2160-0 0.68 mg/dL L=0.51 H=0.95 SODIUM SERUM 2951-2 141 mmol/L L=136 H=145 POTASSIUM SERUM 2823-3 3.8 mmol/L L=3.4 H=5 .2 CHLORIDE SERUM 2075-0 104 mmol/L L=96 H=110 CARBON DIOXIDE (CO2) 2028-9 26 mmol/L L=22 H=34 ANION GAP 52793-4 11.2 mmol/L CALCIUM SERUM 97710-2 9.5 mg/dL L=8.2 H=10. 2 BILIRUBIN TOTAL 1975-2 0.3 mg/dL L=0.0 H=1 .3 ALK. PHOS. 6768-6 70 U/L L=46 H=116 SGOT (AST) 1920-8 12 U/L L=15 H=37 SGPT (ALT) 1742-6 11 U/L L=12 H=78 TOTAL PROTEIN 2885-2 8.2 gm/dL L=6.0 H=8.0 ALBUMIN 1751-7 4.2 gm/dL L=3.4 H=5.0 AGE 21 years eGFR (non-Afr.Amer.) 53718-9 111 mL/min eGFR (Afr-Palauan) 02932-2 >120 mL/min TSH THYROID STIMULATING HORM ONE - Collect Date/Time: 03/06/2021 20:03 Test Name Code Test Result Test Units Test Ref Rang e TSH 3014-8 1.959 uIU/mL L=0.360 H=3.74 0 ACETAMINOPHEN - Collect Date /Time: 03/06/2021 20:03 Test Name Code Test Result Test Units Test Ref Rang e ACETAMINOPHEN 3298-7 <2.0 ug/mL L=10.0 H=20 .0 ALCOHOL (ETHANOL) - Collect Date/Time: 03/06/2021 20:03 Test Name Code Test Result Test Units Test Ref Rang e ALCOHOL (ETHANOL) 59567-1 <3 mg/dL SALICYLATE SERUM - Collect D ate/Time: 03/06/2021 20:03 Test Name Code Test Result Test Units Test Ref Rang e SALICYLATE 4024-6 <2.8 mg/dL L=15.0 H=30.0 CBC W/ DIFFERENTIAL - Collec t Date/Time: 03/06/2021 20:03 Test Name Code Test Result Test Units Test Ref Rang e WBC 6690-2 7.70 th/cmm L=5.00 H=10.00 NEUT % 64.2 % L=40.0 H=80.0 LYMPH % 25.3 % L=10.0 H=50.0 MONO % 96369-0 8.4 % L=2.0 H=12.0 EOS % 1.6 % L=0.0 H=8.0 BASO % 0.4 % L=0.0 H=3.0 IG % 2514-8 0.1 % L=0.0 H=1.1 NRBC % 53435-5 0.0 % L=0.0 H=0.0 NEUT abs count 751-8 4.9 th/cmm L=1.6 H=8. 4 LYMPH abs count 731-0 2.0 th/cmm L=1.5 H=4 .0 MONO abs count 742-7 0.7 th/cmm L=0.2 H=1. 0 EOS abs count 711-2 0.1 th/cmm L=0.0 H=0.5 BASO abs count 704-7 0.0 th/cmm L=0.0 H=0. 2 IG abs count 52910-6 0.0 th/cmm L=0.0 H=0.1 NRBC abs count 48245-7 0.0 mil/cmm L=0.0 H=0. 0 RBC 789-8 4.81 mil/cmm L=3.90 H=5.40 HEMOGLOBIN 718-7 13.9 gm/dL L=12.0 H=16.0 HEMATOCRIT 4544-3 40 % L=37 H=47 MCV 787-2 83 fL L=82 H=92 MCH 785-6 28.9 pg L=27.0 H=31.0 MCHC 786-4 34.7 % L=32.0 H=36.0 RDW-SD 788-0 35.8 fL L=39.0 H=49.0 PLATELET COUNT 777-3 286 th/cmm L=150 H=45 0 Atyp lymphs 1+ N/A DRUG SCN 13 PANEL (FTRANS) - Collect Date/Time: 03/06/2021 19:53 Test Name Code Test Result Test Units Test Ref Rang e CANNABINOIDS 97701-7 NEGATIVE N/A Cutoff = 50 ng/mL PHENCYCLIDINE 60629-8 NEGATIVE N/A Cutoff = 25 ng/mL COCAINE 83582-3 NEGATIVE N/A Cutoff = 150 n g/mL METHAMPHETAMINES 44144-7 NEGATIVE N/A Cutoff = 500 ng/mL OPIATES 65453-7 NEGATIVE N/A Cutoff = 100 n g/mL AMPHETAMINES 84073-1 NEGATIVE N/A Cutoff = 500 ng/mL BENZODIAZEPINES 12991-1 NEGATIVE N/A Cutoff = 150 ng/mL TRICYCLIC ANTIDEP 3533-7 NEGATIVE N/A Cutoff = 300 ng/mL METHADONE 23878-8 NEGATIVE N/A Cutoff = 200 n g/mL BARBITURATES 80208-7 NEGATIVE N/A Cutoff = 200 ng/mL OXYCODONE 53682-8 NEGATIVE N/A Cutoff = 100 n g/mL PROPOXYPHENE 05863-2 NEGATIVE N/A Cutoff = 300 ng/mL BUPRENORPHINE 3414-0 NEGATIVE N/A Cutoff = 10 mg/mL URINALYSIS WITH REFLEX CULT IF POSITIVE - Collect Date/Time: 03/06/2021 19:53 Test Name Code Test Result Test Units Test Ref Rang e COLLECTION MODE: Clean Catch N/A Color 5778-6 YELLOW N/A yellow Appearance 5767-9 CLEAR N/A clear Glucose urine 63949-0 NEGATIVE N/A negative mg /dl Bilirubin 5770-3 NEGATIVE N/A negative Ketones 2514-8 NEGATIVE N/A negative mg/dl Spec gravity 5811-5 1.025 N/A 1.003 - 1.03 0 pH urine 2756-5 6.5 N/A 5.0 - 7.0 Protein 94072-8 NEGATIVE N/A negative mg/dl Urobilinogen 29093-6 0.2 N/A <or= 1 EU/dl Nitrite. 5802-4 NEGATIVE N/A negative Blood 5794-3 LARGE N/A negative Leukocytes. NEGATIVE N/A negative MICROSCOPIC INDICATED N/A WBCs. 17762-9 none N/A 0-5 / hpf RBCs 58175-4 5-10 N/A 0-5 / hpf Epith cells 09721-1 5-10 N/A 0-5 / hpf Cell types squamous N/A Crystals none N/A none Bacteria minimal N/A none Mucus 8247-9 present N/A none Casts 17825-4 none N/A none /lpf Active Medications Unknown or Not Available. Medications Administered During Visit Unknown or Not Available. Encounters Encounter Diagnosis Diagnosis Code Start Date Poisoning by local astringen ts and local detergents, accidental (unintentional), initial encounter [id number] 03/06/20 21 Social History Smoking Status Code Start Date End Date Never smoker [id number] Patient Decision Aids Unknown or Not Available. Discharge Instructions You were admitted to [facility] on 03/06/2021 18:48 with a principal diagnosis of Poisoning by local astringents and local detergents, accidental (unintentional), initial encounter You had the following tests done:ACETAMINOPHENALCOHOL (ETHANOL)CBC W/ DIFFERENTIALCOMPREHENSIVE METABOLIC PANEL (CMP)SALICYLATE SERUMTSH THYROID STIMULATING HORMONEDRUG SCN 13 PANEL ([facility])URINALYSIS WITH REFLEX CULT IF POSITIVE You were discharged from [facility] on 03/06/2021 21:59 Should you have any questions prior to discharge, please contact a member of your healthcare team. If you have left the hospital and have any questions, please contact your primary care physician. Chief Complaint and Reason For Visit Chief Complaint Date of Onset INGESTED TIDE POD Function Status Unknown or Not Available. Plan of Care Unknown or Not Available. Referral/Transition of Care Unknown or Not Available.
--- OUTSIDE RECORDS SUMMARY | 2022-10-07 22:37 | XMS_ITS | CCD ---
Author Name Unknown Address [address] [place] [address] [phone] Organization Unknown Address [address] [place] [address] [phone] Care Team Providers Care Senior Drafter Name Role Phone AURA MASTERSON MD Attending Physician [phone] AURA MASTERSON MD Er Physician [phone] Vital Signs Unknown or Not Available. Allergies Unknown or Not Available. Procedures Unknown or Not Available. History of Immunizations Unknown or Not Available. Problems Unknown or Not Available. Results Unknown or Not Available. Active Medications Unknown or Not Available. Medications Administered During Visit Unknown or Not Available. Encounters Encounter Diagnosis Diagnosis Code Start Date Adjustment disorder, unspecified [id number] 03/03/2021 Social History Smoking Status Code Start Date End Date Never smoker [id number] Patient Decision Aids Unknown or Not Available. Discharge Instructions You were admitted to [facility] on 03/03/2021 21:22 with a principal diagnosis of Adjustment disorder, unspecified You were discharged from [facility] on 03/03/2021 23:35 Should you have any questions prior to discharge, please contact a member of your healthcare team. If you have left the hospital and have any questions, please contact your primary care physician. Chief Complaint and Reason For Visit Chief Complaint Date of Onset EVALUATION Function Status Unknown or Not Available. Plan of Care Unknown or Not Available. Referral/Transition of Care Unknown or Not Available.
--- OUTSIDE RECORDS SUMMARY | 2022-10-07 22:37 | XMS_ITS | CCD ---
Author Name Unknown Address [address] [place] [address] [phone] Organization Unknown Address [address] [place] [address] [phone] Care Team Providers Care Accounts Receivable Executive Name Role Phone TOMÁS CURTIS MD Attending Physician [phone] JAVID NGUYỄN Er Physician [phone] Vital Signs Unknown or Not Available. Allergies Unknown or Not Available. Procedures Unknown or Not Available. History of Immunizations Unknown or Not Available. Problems Unknown or Not Available. Results CHELSEY COVID FLU RSV GENEXPE RT - Collect Date/Time: 02/15/2021 21:06 Test Name Code Test Result Test Units Test Ref Rang e COVID 26460-9 NEGATIVE N/A Normal: Negati ve INFLUENZA A DNA 00994-4 NEGATIVE N/A Normal: N egative INFLUENZA B DNA 72112-3 NEGATIVE N/A Normal: N egative RSV DNA 75549-1 NEGATIVE N/A Normal: Negati ve DRUG SCN 13 PANEL ([facility]) - Collect Date/Time: 02/15/2021 19:31 Test Name Code Test Result Test Units Test Ref Rang e CANNABINOIDS 64039-4 NEGATIVE N/A Cutoff = 50 ng/mL PHENCYCLIDINE 19890-7 NEGATIVE N/A Cutoff = 25 ng/mL COCAINE 87412-0 NEGATIVE N/A Cutoff = 150 n g/mL METHAMPHETAMINES 81306-1 NEGATIVE N/A Cutoff = 500 ng/mL OPIATES 64250-0 NEGATIVE N/A Cutoff = 100 n g/mL AMPHETAMINES 48472-0 NEGATIVE N/A Cutoff = 500 ng/mL BENZODIAZEPINES 94360-4 NEGATIVE N/A Cutoff = 150 ng/mL TRICYCLIC ANTIDEP 3533-7 NEGATIVE N/A Cutoff = 300 ng/mL METHADONE 90436-0 NEGATIVE N/A Cutoff = 200 n g/mL BARBITURATES 96991-8 NEGATIVE N/A Cutoff = 200 ng/mL OXYCODONE 09184-2 NEGATIVE N/A Cutoff = 100 n g/mL PROPOXYPHENE 29133-8 NEGATIVE N/A Cutoff = 300 ng/mL BUPRENORPHINE 3414-0 NEGATIVE N/A Cutoff = 10 mg/mL URINALYSIS WITH REFLEX CULT IF POSITIVE - Collect Date/Time: 02/15/2021 19:31 Test Name Code Test Result Test Units Test Ref Rang e COLLECTION MODE: Clean Catch N/A Color 5778-6 YELLOW N/A yellow Appearance 5767-9 CLOUDY N/A clear Glucose urine 64465-4 NEGATIVE N/A negative mg /dl Bilirubin 5770-3 NEGATIVE N/A negative Ketones 2514-8 NEGATIVE N/A negative mg/dl Spec gravity 5811-5 >=1.030 N/A 1.003 - 1.03 0 pH urine 2756-5 6.0 N/A 5.0 - 7.0 Protein 55706-7 NEGATIVE N/A negative mg/dl Urobilinogen 73277-5 0.2 N/A <or= 1 EU/dl Nitrite. 5802-4 NEGATIVE N/A negative Blood 5794-3 NEGATIVE N/A negative Leukocytes. NEGATIVE N/A negative MICROSCOPIC NOT INDICAT N/A Active Medications Unknown or Not Available. Medications Administered During Visit Unknown or Not Available. Encounters Encounter Diagnosis Diagnosis Code Start Date Suicidal ideations [id number] 02/15/2021 Social History Smoking Status Code Start Date End Date Unknown if ever smoked [id number] Patient Decision Aids Unknown or Not Available. Discharge Instructions You were admitted to [facility] on 02/15/2021 18:09 with a principal diagnosis of Suicidal ideations You had the following tests done:[facility]SEYAmerican Well FLU RSV GENEXPERTDRUG SCN 13 PANEL ([facility])URINALYSIS WITH REFLEX CULT IF POSITIVE You were discharged from [facility] on 02/15/2021 22:24 Should you have any questions prior to [...]
--- NOTE | 2022-10-07 23:00 | RT.EKG_ITS ---
APPROVED REPORT Exam: Resting ECG Reason for Exam: overdose Patient Location: E HR:103 bpm ECG Measurements Heart Rate 103 AXIS RI 157 P 45 QRSd 74 QRS 59 QT 327 T 37 QTc 428 Conclusion Sinus tachycardia...rate> 99. Sinus. Normal axis. Normal intervals. RI depression inferolateral leads. No STEMI. I have reviewed and interpreted ECG and agree with software generated interpretation.
--- NOTE | 2022-10-07 23:00 | DI.RAD_ITS ---
Exam(s) XR HAND RT COMPLETE EXAM: XR HAND RT COMPLETE CLINICAL HISTORY: punched ground, abrasions 3rd/4th/5th,r/o fracture. TECHNIQUE: 2D digital imaging was performed. Three views. COMPARISON: No exams were available for comparison FINDINGS: JOINTS: No dislocation present. SOFT TISSUE: Soft tissue swelling and debris at the dorsal aspect of the proximal interphalangeal jessica nts of the 3rd through 5th fingers. The debris somewhat obscures visualization of the region the PIP joint of the 3rd finger. There is a question of a fracture at the medial proximal corner of the mid dle phalanx of the 3rd finger. IMPRESSION: Question of a small non displaced fracture at the medial corner of the base of the middle phalanx of the 3rd finger DATA REPOSITORY: RADIATION DOSE DELIVERED:
[2022-10-07 23:19] LABS: Abs Immature Grans 0.06 10^3/uL (0.0-0.06); Absolute Lymphocyte Count 1.59 10^3/uL (1.2-3.4); Absolute Monocyte Count 0.79 10^3/uL (0.1-0.8); Absolute Neutrophil Count 9.05 10^3/uL (1.2-6.7); Basophils % 0.3; Eosinophils % 0.9; HCT 41.4 % (36.0-46.0); HGB 13.7 g/dL (11.2-15.7); Immature Grans % 0.5; Lymphocytes % 13.7; MCH 28.6 pg (27.0-33.0); MCHC 33.1 % (32.0-36.0); MCV 86 fL (80-95); MPV 10.8 fL (8.0-11.0); Monocytes % 6.8; Neutrophils % 77.8; Platelet Count 288 10^3/uL (130-400); RBC 4.79 10^6/uL (3.93-5.22); RDW 11.6 % (11.7-14.6); RDW-SD 37.2 fL; WBC 11.63 10^3/uL (4.4-10.8)
[2022-10-07 23:20] LABS: Absolute Basophil Count 0.03 10^3/uL (0.0-0.2)
[2022-10-07 23:29] LABS: Bilirubin Negative (Negative); Blood Negative (Negative); Clarity Sl Cloudy (Clear); Glucose Negative (Negative); Ketones Negative (Negative); Leukocyte Esterase Negative (Negative); Nitrite Negative (Negative); Specific Gravity 1.025 (1.005-1.025); Urobilinogen 0.2 mg/dL (Up to 0.2); pH 6.5 (5-8)
[2022-10-07 23:37] LABS: ALT 32 U/L (14-59); AST 21 U/L (15-37); Albumin 3.7 g/dL (3.4-5.0); Alkaline Phosphatase 92 U/L (46-116); Anion Gap 6.8 mmol/L (3-11); BUN 12 mg/dL (7-18); Bilirubin, Total 0.1 mg/dL (0.2-1.0); CO2 30.2 mmol/L (21.0-32.0); CREATININE 1.1 mg/dL (0.55-1.02); Chloride 102 mmol/L (98-107); Estimated GFR 73.77 (mL/min/1.73m2); Glucose 133 mg/dL (74-106); Magnesium 2.1 mg/dL (1.8-2.4); Potassium 3.7 mmol/L (3.5-5.1); Sodium 139 mmol/L (136-145); Total Protein 7.3 g/dL (6.4-8.2); Troponin I < 50 ng/L (<or=60)
--- NOTE | 2022-10-07 23:42 | ED.GENADUL_ITS ---
Discharge Plan Disposition Patient Disposition: Admit to [facility] Discharge Details Clinical Impression: Intentional overdose of drug in tablet form, Fracture of finger of right hand, Abrasion of finger, right Admit Date/Time: 10/08/22 01:20 Admit Provider: Jesus Alanis Attending Provider: Jesus Alanis Primary Care Provider: Frank Richter ED Provider: Savanah Amado Discharge Data Discharge Date/Time-TO BE ENTERED AT DEPARTURE: 10/08/22 02:17 Medical Decision Making 5 -- 22-year-old female who identifies as male with history of depression, OCD, former suicide attempt with medication overdose, deliberate self cutting who presents for suicidal ideation after overdose of his medication followed by immediate vomiting 1 hour prior to arrival. After confirmation with mom over the phone with patient consent, patient endorsed he took 1 weeks worth of Abilify 5 mg, bupropion 150 mg extended release and bupropion 100 mg sustained release. Mom also found a bottle of hydroxyzine but patient endorses he did not take this. Blood pressure hypertensive on arrival at 140/92. Heart rate elevated to 120s. Patient endorses nausea but no other complaints. He is awake and alert and answering questions. He has skin avulsions and abrasions to the right third through fifth PIP joints. Will obtain right hand x-ray. Will obtain screening labs, EKG. Will call poison control. 4226 -- Case discussed with poison control who notes that the bupropion extended release will require 24 hours of monitoring from time of ingestion which will be until 930 tomorrow night. Concern with Wellbutrin would be delayed onset of seizures in addition to QRS and QTc widening. With Abilify, would expect lethargy, nausea, vomiting, tremors and tachycardia. With hydroxyzine would also expect tachycardia, [employer] depression, increased risk of seizures and QTc prolongation. We will admit patient to the floor pending medical clearance in 24 hours. We will add a 4-hour Tylenol level and salicylate. Patient's heart rate not i mproved to low 100s. He is awake and alert and appears in no acute distress. X-ray right hand reviewed and notes radiopaque debris within the soft tissues of the second third fourth and fifth PIP joints in addition to minimally displaced avulsion fracture third right middle and distal phalanx. Her finger wounds were soaked and irrigated and debris removed. She has superficial abrasions remain ing. We will place antibiotic ointment and dressings. A finger splint was placed to the right third finger. Tetanus up-to-date 2014. 0120 --heart rate improved to 90s. Blood pressure improved 131/82. Patient is awake and alert and appears comfortable. Case discussed with hospitalist who accepts patient for admission. Medical Records Medical records reviewed: Yes I reviewed the patient's medical records. Imaging Data Radiologic Study: Radiologist's impression: XR Right Hand Exam date and time: 10/07/2022 11:07 PM Age: 22 years old Clinical indication: Pain; Hand; Right; Patient HX: Punched ground, abrasions 3rd/4th/5th, R/O fracture TECHNIQUE: Imaging protocol: Radiologic exam of the Right hand. Views: 3 or more views. COMPARISON: No relevant prior studies available. FINDINGS: Bones/joints: Questionable minimally displaced avulsion fractures at the 3rd middle phalanx medial proximal aspect and the distal phalanx medial distal aspect. No definitive acute fracture.If there is persistent pain, recommend obtaining followup imaging in 7-10 days to assess for occult fracture. There remaining osseous structures appear intact. Soft tissues: Radiopaque debris is present within the soft tissues of the 2nd, 3rd, 4th as well as 5th proximal interphalangeal joints. There is soft tissue swelling of the 2nd, 3rd, 4th and 5th fingers. IMPRESSION: 1. Radiopaque debris is present within the soft tissues of the 2nd, 3rd, 4th as well as 5th proximal interphalangeal joints. 2. Questionable minimally displaced avulsion fractures at the 3rd middle phalanx medial proximal aspect and the distal phalanx medial distal aspect. No definitive acute fracture. If there is persistent pain, recommend obtaining followup imaging in 7-10 days to assess for occult fracture. 3. There is soft tissue swelling of the 2nd, 3rd, 4th and 5th fingers. , Lab Data Lab results reviewed: Yes I reviewed the patient's lab results. Labs: Laboratory Tests Range/Units 10/07/22 10/07/22 10/07/22 23:11 23:11 23:11 WBC (4.4-10.8) 10^3/uL 11.63 H RBC (3.93-5.22) 10^6/uL 4.79 Hgb (11.2-15.7) g/dL 13.7 Hct (36.0-46.0) % 41.4 MCV (80-95) fL 86 MCH (27.0-33.0) pg 28.6 MCHC (32.0-36.0) % 33.1 RDW (11.7-14.6) % 11.6 L Plt Count (130-400) 10^3/uL 288 MPV (8.0-11.0) fL 10.8 Immature Gran % 0.5 Neutrophils % 77.8 Lymphocytes % 13.7 Monocytes % 6.8 Eosinophils % 0.9 Basophils % 0.3 Nucleated RBC % (0.0-0.3) % 0.0 Absolute Neutrophils (1.2-6.7) 10^3/uL 9.05 H Absolute Lymphocytes (1.2-3.4) 10^3/uL 1.59 Absolute Monocytes (0.1-0.8) 10^3/uL 0.79 Absolute Eosinophils (0.0-0.7) 10^3/uL 0.10 Absolute Basophils (0.0-0.2) 10^3/uL 0.03 Sodium (136-145) mmol/L 139 Potassium (3.5-5.1) mmol/L 3.7 Chloride (98-107) mmol/L 102 Carbon Dioxide (21.0-32.0) mmol/L 30.2 Anion Gap (3-11) mmol/L 6.8 BUN (7-18) mg/dL 12 Creatinine (0.55-1.02) mg/dL 1.1 H Est GFR (CKD-EPI 2020) (mL/min/1.73m2) 73.77 Glucose (74-106) mg/dL 133 H Calcium (8.5-10.1) mg/dL 9.0 Magnesium (1.8-2.4) mg/dL 2.1 Total Bilirubin (0.2-1.0) mg/dL 0.1 L AST (15-37) U/L 21 ALT (14-59) U/L 32 Alkaline Phosphatase (46-116) U/L 92 Troponin I (<or=60) ng/L < 50 Total Protein (6.4-8.2) g/dL 7.3 Albumin (3.4-5.0) g/dL 3.7 Urine Color (Yellow) Urine Clarity (Clear) Urine pH (5-8) Ur Specific Dawson (1.005-1.025) Urine Protein (Negative) mg/dL Urine Ketones (Negative) mg/dL Urine Blood (Negative) Urine Nitrite (Negative) Urine Bilirubin (Negative) Urine Urobilinogen (Up to 0.2) mg/dL Ur Leukocyte Esterase (Negative) Urine Glucose (Negative) mg/dL Salicylates (<2.8) mg/dL < 2.8 Urine Opiates Screen (Negative) Urine Methadone Screen (Negative) Acetaminophen (10-30) ug/mL Ur Barbiturates Screen (Negative) Ur Tricyclics Screen (Negative) Ur Amphetamines Screen (Negative) U Benzodiazepines Scrn (Negative) Urine Cocaine Screen (Negative) Ur THC Screen (Negative) Range/Units 10/07/22 10/07/22 10/07/22 23:11 23:21 23:21 WBC (4.4-10.8) 10^3/uL RBC (3.93-5.22) 10^6/uL Hgb (11.2-15.7) g/dL Hct (36.0-46.0) % MCV (80-95) fL MCH (27.0-33.0) pg MCHC (32.0-36.0) % RDW (11.7-14.6) % Plt Count (130-400) 10^3/uL MPV (8.0-11.0) fL Immature Gran % Neutrophils % Lymphocytes % Monocytes % Eosinophils % Basophils % Nucleated RBC % (0.0-0.3) % Absolute Neutrophils (1.2-6.7) 10^3/uL Absolute Lymphocytes (1.2-3.4) 10^3/uL Absolute Monocytes (0.1-0.8) 10^3/uL Absolute Eosinophils (0.0-0.7) 10^3/uL Absolute Basophils (0.0-0.2) 10^3/uL Sodium (136-145) mmol/L Potassium (3.5-5.1) mmol/L Chloride (98-107) mmol/L Carbon Dioxide (21.0-32.0) mmol/L Anion Gap (3-11) mmol/L BUN (7-18) mg/dL Creatinine (0.55-1.02) mg/dL Est GFR (CKD-EPI 2020) (mL/min/1.73m2) Glucose (74-106) mg/dL Calcium (8.5-10.1) mg/dL Magnesium (1.8-2.4) mg/dL Total Bilirubin (0.2-1.0) mg/dL AST (15-37) U/L ALT (14-59) U/L Alkaline Phosphatase (46-116) U/L Troponin I (<or=60) ng/L Total Protein (6.4-8.2) g/dL Albumin (3.4-5.0) g/dL Urine Color (Yellow) Yellow Urine Clarity (Clear) Sl Cloudy Urine pH (5-8) 6.5 Ur Specific Dawson (1.005-1.025) 1.025 Urine Protein (Negative) mg/dL Negative Urine Ketones (Negative) mg/dL Negative Urine Blood (Negative) Negative Urine Nitrite (Negative) Negative Urine Bilirubin (Negative) Negative Urine Urobilinogen (Up to 0.2) mg/dL 0.2 Ur Leukocyte Esterase (Negative) Negative Urine Glucose (Negative) mg/dL Negative Salicylates (<2.8) mg/dL Urine Opiates Screen (Negative) Negative Urine Methadone Screen (Negative) Negative Acetaminophen (10-30) ug/mL < 2 Ur Barbiturates Screen (Negative) Negative Ur Tricyclics Screen (Negative) Negative Ur Amphetamines Screen (Negative) Negative U Benzodiazepines Scrn (Negative) Negative Urine Cocaine Screen (Negative) Negative Ur THC Screen (Negative) Positive A ECG Data Attestation: I personally reviewed and interpreted this ECG (s) as follows: Interpretation: Rate of 103, sinus, normal axis, normal SC interval. Normal QRS. Normal QTc of 428. No STEMI. HPI General Mode of arrival: ambulatory . Date/Time Provider Initiated Documentation: 10/07/22 22:28 . Limitations to Documentation: no limitations . Information obtained by: patient . HPI Narrative: Patient is a 22-year-old female who identifies as male with a history of depression, OCD, self cutting, previous suicide attempt who presents for suicidal ideation with report of taking an overdose of her medication 1 hour prior to arrival. Patient states he took 1 weeks worth of his 3 medications which after confirmation with mom include Abilify 5 mg once daily, bupropion HCl 150 mg extended release once daily, bupropion 100 mg sustained release once daily which patient states he took 1 hour prior to arrival. Patient states he vomited immediately after taking these medications. After call to mom with patient's consent, she confirmed these medications and also found a bottle of hydroxyzine. Patient endorses he only took his 3 medications which are prescribed and packs which mom confirms as Abilify and the 2 different dosages of bupropion. Patient states he is unsure if he was able to swallow any of the medications as he immediately vomited after. He admits to nausea at this time. He denies any alcohol use. He admits to regular marijuana use. Denies any fever, chest pain, difficulty breathing or abdominal pain. He does admit to homicidal ideation at times but does not endorse to whom this is directed. Patient endorses that he took these medications, vomited and then called mental health and told them that he planned to jump off a building to kill himself. Patient states he left the house at some point and the police were notified from mental health who picked up patient and brought him to the emergency department for evaluation. Patient also endorsed that he did punch the ground multiple times and has abrasions to his right third through fifth fingers. Related Data Home Medications Medication Instructions Recorded Confirmed testosterone cypionate 200 mg/mL 1 applic IM QWEEK 12/31/21 10/07/22 intramuscular oil aripiprazole 5 mg tablet 5 mg PO DAILY 10/07/22 10/07/22 bupropion HCl 100 mg tablet,12 hr 100 mg PO QAM 10/07/22 10/07/22 sustained-release bupropion HCl 150 mg 24 hr tablet, 150 mg PO QAM 10/07/22 10/07/22 extended release hydroxyzine pamoate 25 mg capsule 25 mg 10/07/22 acetaminophen 325 mg tablet 325 - 650 mg PO Q4H PRN PRN #0 tabs 10/09/22 cephalexin 500 mg capsule 500 mg PO QID #20 caps 10/09/22 ibuprofen 800 mg tablet 800 mg PO TID PRN PRN #0 tabs 10/09/22 Previous Rx's Medication Instructions Recorded acetaminophen 325 mg tablet 325 - 650 mg PO Q4H PRN PRN #0 tabs 10/09/22 cephalexin 500 mg capsule 500 mg PO QID #20 caps 10/09/22 ibuprofen 800 mg tablet 800 mg PO TID PRN PRN #0 tabs 10/09/22 Allergies Allergy/AdvReac Type Severity Reaction Status Date / Time wool AdvReac Intermediate Hives Unverified 10/07/22 23:11 General Stated Complaint: PsychEval ADRIANA: 2 PFSH All Active Problems Intentional overdose of drug in tablet form (Acute) Fracture of finger of right hand (Acute) Abrasion of finger, right (Acute) Overdose (Acute) Altered mental status (Acute) OD (overdose of drug) (Acute) 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 Depression (Chronic) 09/2021-Suidice attempt, clonidine overdose, hospitalized at [facility]-required short term intubation Tonsillar hypertrophy (Acute) Sensorineural hearing loss, unilateral, right ear, with unrestricted hearing on the contralateral side (Acute) Medical History Deliberate self-cutting Depression OCD (obsessive compulsive disorder) Suicide attempt Transgender Surgical History No significant past surgical history Family History Mother Essential hypertension Heart disease Hyperlipidemia Father COPD (chronic obstructive pulmonary disease) Sister Asthma Brother No problems noted. Grandfather Diabetes Essential hypertension Heart disease Hyperlipidemia Grandfather Neoplasm LUNG Grandmother No problems noted. Grandmother Diabetes Essential hypertension Heart disease Hyperlipidemia Neoplasm BREAST Stroke Social History Smoking/Tobacco Use Status: Never Smoking risk assessment performed?: Yes Alcohol Intake: never Drug use: Never Substance use type: marijuana Do you feel safe at home: Yes (Lives alone) Do you feel safe in your relationship?: Yes Additional Social history: Patient unable to give further details at this time. Exam Const General: cooperative and no acute distress Orientation: alert, awake and oriented x3 HENMT Head: normal to inspection Ears: hearing grossly normal bilaterally and external ears normal Face and sinus: normal facial exam Eyes General: appearance normal, both eyes and all related structures Pupils: dilated bilaterally EOM: EOM intact bilaterally Neck Neck: normal visual inspection and No submandibular swelling Lymphatic: no lymphadenopathy noted Chest Chest: normal inspection of the chest and no tenderness Resp Effort & Inspection: normal respiratory effort and able to speak in complete sentences Auscultation: clear to auscultation bilaterally Cardio Rate: tachycardic Rhythm: regular rhythm GI Inspection: normal to inspection Palpation: soft, not firm, not rigid and nontender Auscultation: hypoactive bowel sounds Back/Spine/Pelvis Thoracic/Lumbar Spine: thoracic and lumbar spine normal to inspection Pelvis: no pain with anterior-posterior compression Skin General skin exam: no rashes or lesions noted Neuro General: patient alert, patient awake, patient oriented x3, moves all extremities and no meningeal signs Cranial Nerves: CN's II-XI intact bilaterally Cognition: normal cognition Speech: speech normal Motor: muscle tone normal throughout and strength 5/5 throughout Sensory Exam: no sensory deficits noted Extrem General: normal to inspection, full ROM, capillary refill normal, no calf tenderness bilaterally and no edema Psych Appearance: grossly normal Mental Status: mental status grossly normal Speech and Movement: speech and movement normal Affect: normal affect Course Vital Signs Vital signs: Vital Signs Temperature 98.4 F 10/07/22 22:31 Pulse 128 H 10/07/22 22:31 Respiratory Rate 16 10/07/22 22:31 Blood Pressure 140/92 H 10/07/22 22:31 Pulse Oximetry 96 10/07/22 22:31 Temperature 98.4 F 10/07/22 22:31 Temperature Source Temporal Artery Scan 10/07/22 22:31 Pulse 128 H 10/07/22 22:31 Respiratory Rate 16 10/07/22 22:31 Blood Pressure 140/92 H 10/07/22 22:31 Blood Pressure Position Sitting 10/07/22 22:31 Pulse Oximetry 96 10/07/22 22:31 Oxygen Delivery Method Room Air 10/07/22 22:31 Oxygen Flow Rate 0 10/07/22 22:31 Lab/Test Results Lab/Test Results: Laboratory Tests Range/Units 10/07/22 10/07/22 10/07/22 23:11 23:11 23:21 WBC (4.4-10.8) 10^3/uL 11.63 H RBC (3.93-5.22) 10^6/uL 4.79 Hgb (11.2-15.7) g/dL 13.7 Hct (36.0-46.0) % 41.4 MCV (80-95) fL 86 MCH (27.0-33.0) pg 28.6 MCHC (32.0-36.0) % 33.1 RDW (11.7-14.6) % 11.6 L Plt Count (130-400) 10^3/uL 288 MPV (8.0-11.0) fL 10.8 Immature Gran % 0.5 Neutrophils % 77.8 Lymphocytes % 13.7 Monocytes % 6.8 Eosinophils % 0.9 Basophils % 0.3 Nucleated RBC % (0.0-0.3) % 0.0 Absolute Neutrophils (1.2-6.7) 10^3/uL 9.05 H Absolute Lymphocytes (1.2-3.4) 10^3/uL 1.59 Absolute Monocytes (0.1-0.8) 10^3/uL 0.79 Absolute Eosinophils (0.0-0.7) 10^3/uL 0.10 Absolute Basophils (0.0-0.2) 10^3/uL 0.03 Sodium (136-145) mmol/L 139 Potassium (3.5-5.1) mmol/L 3.7 Chloride (98-107) mmol/L 102 Carbon Dioxide (21.0-32.0) mmol/L 30.2 Anion Gap (3-11) mmol/L 6.8 BUN (7-18) mg/dL 12 Creatinine (0.55-1.02) mg/dL 1.1 H Est GFR (CKD-EPI 2020) (mL/min/1.73m2) 73.77 Glucose (74-106) mg/dL 133 H Calcium (8.5-10.1) mg/dL 9.0 Magnesium (1.8-2.4) mg/dL 2.1 Total Bilirubin (0.2-1.0) mg/dL 0.1 L AST (15-37) U/L 21 ALT (14-59) U/L 32 Alkaline Phosphatase (46-116) U/L 92 Troponin I (<or=60) ng/L < 50 Total Protein (6.4-8.2) g/dL 7.3 Albumin (3.4-5.0) g/dL 3.7 Urine Color (Yellow) Yellow Urine Clarity (Clear) Sl Cloudy Urine pH (5-8) 6.5 Ur Specific Dawson (1.005-1.025) 1.025 Urine Protein (Negative) mg/dL Negative Urine Ketones (Negative) mg/dL Negative Urine Blood (Negative) Negative Urine Nitrite (Negative) Negative Urine Bilirubin (Negative) Negative Urine Urobilinogen (Up to 0.2) mg/dL 0.2 Ur Leukocyte Esterase (Negative) Negative Urine Glucose (Negative) mg/dL Negative POC- Test(urine) Negative Critical Care Time Critical Care Time Critical Care Time: Yes Total Critical Care Time: 30 Attestation: I spent 30 minutes of critical care time with this patient. This does not include time spent on separately reported billable procedures.
[2022-10-07 23:48] LABS: *AMPHETAMINES SCREEN URINE Negative (Negative); *BARBITURATES SCREEN URINE Negative (Negative); *BENZODIAZEPINES SCREEN URINE Negative (Negative); Cannabinoids THC Positive (Negative); Cocaine Screen,Urine Negative (Negative); METHADONE URINE SCREEN Negative (Negative); OPIATES URINE SCREEN Negative (Negative)
--- NOTE | 2022-10-07 23:48 | DI.VRAD_ITS ---
PROCEDURE INFORMATION: Exam: XR Right Hand Exam date and time: 10/07/2022 11:07 PM Age: 22 years old Clinical indication: Pain; Hand; Right; Patient HX: Punched ground, abrasions 3rd/4th/5th, R/O fracture TECHNIQUE: Imaging protocol: Radiologic exam of the Right hand. Views: 3 or more views. COMPARISON: No relevant prior studies available. FINDINGS: Bones/joints: Questionable minimally displaced avulsion fractures at the 3rd middle phalanx medial proximal aspect and the distal phalanx medial distal aspect. No definitive acute fracture.If there is persistent pain, recommend obtaining followup imaging in 7-10 days to assess for occult fracture. There remaining osseous structures appear intact. Soft tissues: Radiopaque debris is present within the soft tissues of the 2nd, 3rd, 4th as well as 5th proximal interphalangeal joints. There is soft tissue swelling of the 2nd, 3rd, 4th and 5th fingers. IMPRESSION: 1. Radiopaque debris is present within the soft tissues of the 2nd, 3rd, 4th as well as 5th proximal interphalangeal joints. 2. Questionable minimally displaced avulsion fractures at the 3rd middle phalanx medial proximal aspect and the distal phalanx medial distal aspect. No definitive acute fracture. If there is persistent pain, recommend obtaining followup imaging in 7-10 days to assess for occult fracture. 3. There is soft tissue swelling of the 2nd, 3rd, 4th and 5th fingers. , Dictated and Authenticated by: Zaid Gomez MD. Ordering:LAKHWINDER Pavon MD
[2022-10-07 23:51] LABS: Tricyclic Antidepressants Negative (Negative)
[2022-10-08] VITALS (37 sets, daily range): BP systolic 100–140; BP diastolic 59–88; PULSE 71–107; RESP 14–22; TEMP 36.4–36.8; O2SAT 86–100
[2022-10-08] MEDS: Normal Saline 1,000 ML 1000 ML IV (00:01)
[2022-10-08] MEDS: Prochlorperazine 10 MG/2 ML VIAL IVP (00:11)
[2022-10-08 00:12] LABS: Salicylate < 2.8 mg/dL (<2.8)
[2022-10-08 00:19] LABS: Acetaminophen < 2 ug/mL (10-30)
[2022-10-08] MEDS: Cephalexin 500 MG CAP PO ×4 (00:55→19:35)
--- NOTE | 2022-10-08 07:41 | NUR.NOTE ---
Nursing Note: Aleksey Jacinto # [phone].
--- NOTE | 2022-10-08 08:00 | RT.EKG_ITS ---
APPROVED REPORT Exam: Resting ECG Reason for Exam: QTC monitoring Patient Location: I HR:83 bpm ECG Measurements Heart Rate 83 AXIS OH 141 P 20 QRSd 74 QRS 65 QT 370 T 43 QTc 435 Conclusion Sinus rhythm...normal P axis, V-rate 50- 99 Normal Electrocardiogram
--- NOTE | 2022-10-08 08:03 | W.PM.HP.N ---
Date of service: 10/08/22 Time of Service: 08:03 Assessment and Plan Assessment and plan (1) Intentional overdose of drug in tablet form: Status: Acute Assessment and plan: Over doses 7 days worth of Abilify 5 mg tablet once a day as well as 7 days worth of Wellbutrin extended release and Wellbutrin SR. Check serial EKGs watching for QTc prolongation monitor for seizure disorders. Consult mental health once he is medically cleared. (2) Fracture of finger of right hand: Status: Acute Assessment and plan: Continue splint to the finger. Consult orthopedic surgery for follow-up (3) Abrasion of finger, right: Status: Acute Assessment and plan: Skin wound cleansed. Patient's tetanus shot is up-to-date. We will continue Keflex for 3 days to improve at infection. History of Present Illness History of Present Illness Chief Complaint: Suicide ideation, Wellbutrin and Abilify overdose Narrative: 22-year-old female identifies as a male with a history of depression, OCD, previous suicide attempt with medication overdose, history of deliberate self cutting presented emergency department with suicidal ideation after having taken an overdose of his medications which include Abilify and Wellbutrin and then promptly followed by vomiting. This happened about 1 hour prior to presentation to the emergency department. Patient lives with his parents mother confirm with the emergency room doctor that the patient took 1 weeks worth of Abilify 5 mg daily as well as 2 different forms of bupropion including 150 mg extended release and bupropion 100 mg sustained-release. Patient's mother found a bottle of hydroxyzine but patient endorsed that he did not take this. On arrival patient was hypertensive BP 140/92 and tachycardic with heart rate in the 120s. Patient was awake alert and answering questions. Patient admitted after taking the overdose that he punched the ground with his hand he was found to have skin avulsions and abrasions to right hand involving the right third through fifth PIP joints. X-ray image showed questionable minimally displaced avulsion fracture at the third middle phalanx medial proximal aspect and distal phalanx medial distal aspect. There is soft tissue swelling the second third fourth and fifth fingers. ECG was obtained demonstrates sinus tachycardia rate of 103 bpm QT interval 327 ms QTc interval 428 ms. Normal P wave and T wave axes. Emergency room provider called poison control who advised her that the patient could sustain seizures from the overdose of Wellbutrin as well as cardiac arrhythmias due to QRS and QTc prolongation. Advised observation for 24 hours on monitor on telemetry monitoring with serial EKGs. They also expressed concern of DRILLING AND PRODUCTION SUPERINTENDENT depression and tachycardia if the patient took a hydroxyzine overdose. Urine drug screen was positive for THC but otherwise negative for other drugs of abuse including barbiturates methadone opiates tricyclic antidepressants and feta means benzodiazepines and cocaine. Acetaminophen level was less than 2 mcg/mL and salicylate level was less than 2.8 mg/dL. Patient's wounds were dressed on the right hand finger was placed in a splint and patient was given a dose of Keflex. Patient's tetanus had been updated as recent as 2014. Patient's vital signs were stable prior to admission patient was admitted to the medical/surgical floor on continued telemetry monitoring with repeat EKG to be done this morning. 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 Depression (Chronic) 09/2021-Suidice attempt, clonidine overdose, hospitalized at [facility]-required short term intubation Tonsillar hypertrophy (Acute) Sensorineural hearing loss, unilateral, right ear, with unrestricted hearing on the contralateral side (Acute) Medical History Deliberate self-cutting Depression OCD (obsessive compulsive disorder) Suicide attempt Transgender Surgical History No significant past surgical history Family History Mother Essential hypertension Heart disease Hyperlipidemia Father COPD (chronic obstructive pulmonary disease) Sister Asthma Brother No problems noted. Grandfather Diabetes Essential hypertension Heart disease Hyperlipidemia Grandfather Neoplasm LUNG Grandmother No problems noted. Grandmother Diabetes Essential hypertension Heart disease Hyperlipidemia Neoplasm BREAST Stroke Social History Smoking/Tobacco Use Status: Never Smoking risk assessment performed?: Yes Alcohol Intake: never Drug use: Never Substance use type: marijuana Do you feel safe at home: Yes (Lives alone) Do you feel safe in your relationship?: Yes Additional Social history: Patient unable to give further details at this time. Meds Allergies and Home Medications Allergies Allergy/AdvReac Type Severity Reaction Status Date / Time wool AdvReac Intermediate Hives Unverified 10/07/22 23:11 Home Medications Medication Instructions Recorded Confirmed Type testosterone cypionate 200 mg/mL 1 applic IM QWEEK 12/31/21 10/07/22 History intramuscular oil aripiprazole 5 mg tablet 5 mg PO DAILY 10/07/22 10/07/22 History bupropion HCl 100 mg tablet,12 hr 100 mg PO QAM 10/07/22 10/07/22 History sustained-release bupropion HCl 150 mg 24 hr tablet, 150 mg PO QAM 10/07/22 10/07/22 History extended release hydroxyzine pamoate 25 mg capsule 25 mg 10/07/22 History Exam Narrative Exam Narrative: Young biologic female who identifies as a male. He was initially sleeping but easily was awake and answer my questions appropriately. Affect is flat but he did answer my questions directly and made eye contact. HEENT is unremarkable Neck supple no JVD normal carotid pulses no thyromegaly Lungs clear to auscultation Heart is regular rate and rhythm without murmur rub or gallop Abdomen obese soft and nontender Lower extremities without peripheral cyanosis edema Neurologic exam grossly intact no focal motor deficits no facial asymmetry no dysarthric speech full extraocular motion intact cranial nerves grossly intact. He has no tremors no asterixis Results Labs 10/07/22 23:11 10/07/22 23:11 Labs: Laboratory Results - last 24 hr 10/07/22 10/07/22 10/07/22 23:11 23:11 23:11 WBC 11.63 H RBC 4.79 Hgb 13.7 Hct 41.4 MCV 86 MCH 28.6 MCHC 33.1 RDW 11.6 L Plt Count 288 MPV 10.8 Immature Gran % 0.5 Neutrophils % 77.8 Lymphocytes % 13.7 Monocytes % 6.8 Eosinophils % 0.9 Basophils % 0.3 Nucleated RBC % 0.0 Absolute Neutrophils 9.05 H Absolute Lymphocytes 1.59 Absolute Monocytes 0.79 Absolute Eosinophils 0.10 Absolute Basophils 0.03 Sodium 139 Potassium 3.7 Chloride 102 Carbon Dioxide 30.2 Anion Gap 6.8 BUN 12 Creatinine 1.1 H Est GFR (CKD-EPI 2020) 73.77 Glucose 133 H Calcium 9.0 Magnesium 2.1 Total Bilirubin 0.1 L AST 21 ALT 32 Alkaline Phosphatase 92 Troponin I < 50 Total Protein 7.3 Albumin 3.7 Urine Color Urine Clarity Urine pH Ur Specific [place] Urine Protein Urine Ketones Urine Blood Urine Nitrite Urine Bilirubin Urine Urobilinogen Ur Leukocyte Esterase Urine Glucose Salicylates < 2.8 Urine Opiates Screen Urine Methadone Screen Acetaminophen Ur Barbiturates Screen Ur Tricyclics Screen Ur Amphetamines Screen U Benzodiazepines Scrn Urine Cocaine Screen Ur THC Screen 10/07/22 10/07/22 10/07/22 23:11 23:21 23:21 WBC RBC Hgb Hct MCV MCH MCHC RDW Plt Count MPV Immature Gran % Neutrophils % Lymphocytes % Monocytes % Eosinophils % Basophils % Nucleated RBC % Absolute Neutrophils Absolute Lymphocytes Absolute Monocytes Absolute Eosinophils Absolute Basophils Sodium Potassium Chloride Carbon Dioxide Anion Gap BUN Creatinine Est GFR (CKD-EPI 2020) Glucose Calcium Magnesium Total Bilirubin AST ALT Alkaline Phosphatase Troponin I Total Protein Albumin Urine Color Yellow Urine Clarity Sl Cloudy Urine pH 6.5 Ur Specific [place] 1.025 Urine Protein Negative Urine Ketones Negative Urine Blood Negative Urine Nitrite Negative Urine Bilirubin Negative Urine Urobilinogen 0.2 Ur Leukocyte Esterase Negative Urine Glucose Negative Salicylates Urine Opiates Screen Negative Urine Methadone Screen Negative Acetaminophen < 2 Ur Barbiturates Screen Negative Ur Tricyclics Screen Negative Ur Amphetamines Screen Negative U Benzodiazepines Scrn Negative Urine Cocaine Screen Negative Ur THC Screen Positive A Last Vital Signs Temp 36.5 C 10/08/22 07:25 Pulse 89 10/08/22 07:25 Resp 16 10/08/22 07:25 BP 103/66 10/08/22 07:25 Pulse Ox 99 10/08/22 07:25 Time Spent Time spent with Patient: 40-54 minutes Time was spent: preparing to see the patient(eg.review tests), obtaining and/or reviewing separately otained hiistory, referring, communicating with other health career resource technician (Discussion of case with Dr. Amado), indepentently interpreting results, counseling the patient and care coordination
[2022-10-08] MEDS: Enoxaparin 40 MG/0.4 ML SYR SC (08:17)
--- NOTE | 2022-10-08 08:39 | PDOC.CMSAFE ---
- If Service Date Differs Date of service: 10/08/22 Time of Service: 08:39 Care Management Safety Plan Status: Interim - Reason for Wait Reason for Wait: Medical Clearance Carolina Centeno) is a 22-year-old female who identifies as a male with a history of depression, OCD, previous suicide attempt with medication overdose, history of deliberate self cutting presented emergency department with suicidal ideation after having taken an overdose of his medications which include Abilify and Wellbutrin and then promptly followed by vomiting. Júnior resides with his mother. Júnior requires close monitoring and treatment for intentional OD and fractured right hand and finger abrasion. Once patient has been medically cleared and assessed by screener. If screener deems patient meets criteria for psychiatric stabilization CM will facilitate interdepartmental huddle with [facility] screener for safety planning considerations and meet with patient to review [facility] policy and safety plan, establish individual wishes for treatment and maintain patient rights. In the interim; please note safety plan below to guide patient care while awaiting further assessment in the ED. SAFETY PLAN: 1. Will remain on suicide precautions and in paper clothes. 2. Will remain in room under direct supervision of one-on-one staff at all times provided by PIPER, STENCILER geodetic computator. 3. May have paper cups, plates, finger foods as well as a cardboard spoon with which to eat meals. 4. Follow [facility] Management of the Admitted Behavioral Health Patient policy. 5. Personal care: Comfort bath system only at this time. 6. Bathroom privileges: with escort in ED. Available in room without limitation on Med/Surg. 6. No personal belongings at this time; per RN discretion. 7. No visitors at this time. 8. Phone contact limited to legal contact and pts mother Ophelia Cuellar, at RN discretion. 9. Activities: Music tablet per RN discretion. Med/Surg: Television and remote available at RN discretion. 10. Due to VOLUNTARY status, if patient wishes to leave [facility], staff will contact [facility] Crisis Screener ([phone]) and On-Call Street Light Inspector ([phone]) as soon as possible. In the event of elopement, notify [facility] Police ([phone]). If deemed appropriate for inpatient psychiatric care, safety plan will be established with patient, and care team, to adhere to patient goals, identify restrictions based on behavioral status, address nutrition, and determine allowed personal belongings, tools for hygiene and personal care. As well plan will determine level of activity including ambulation, level of supervision, visitors, and determine privileges based on level of acuity, behaviors and level of engagement by patient.
--- NOTE | 2022-10-08 09:06 | INITIAL_ITS ---
- If Service Date Differs Date of service: 10/08/22 Time of Service: 09:23 Care Management Initial Assess REASON FOR HOSPITALIZATION:: Intentional overdose of drug in tablet form, Right finger fracture and abrasion PAST MEDICAL HISTORY/PAST SURGICAL HISTORY:: All Active Problems . Intentional overdose of drug in tablet form (Acute). Fracture of finger of right hand (Acute). Abrasion of finger, right (Acute). Overdose (Acute). Altered mental status (Acute). OD (overdose of drug) (Acute). Transgender (Acute). female to male. Depression (Chronic). 09/2021-Suidice attempt, clonidine overdose, hospitalized at [facility]- required short term intubation. Tonsillar hypertrophy (Acute). Sensorineural hearing loss, unilateral, right ear, with unrestricted hearing on the contralateral side (Acute). Medical History. Deliberate self-cutting. Depression. OCD (obsessive compulsive disorder). Suicide attempt. Transgender. Surgical History . No significant past surgical history PREVIOUS FUNCTIONAL STATUS/SOCIAL/FAMILY SUPPORTS:: Júnior James) lives in [place] with his mom, dad and sister and identifies that they are all supportive. Júnior is on disability and does not drive. Júnior shares that he previously had services through [facility] but hasn't been in awhile because he can't get to his appointments. Júnior shares that he does not leave the house much because RCT gives him panic attacks and nobody in his household drives. CURRENT FUNCTIONAL STATUS:: Júnior is lying in bed when CM met with him. He is sleeping, but easily wakes up and is calm and appropriate in interaction. Júnior's sister Kayla called this morning for an update, however she is not on the HIPAA and no information is shared. Júnior reiterates to that he would only like his mother on his HIPAA. ADVANCE DIRECTIVES:: None on file Has patient been provided with info about the portal/API?: Yes Did the patient sign up for the portal?: Yes (Prior to admission) CODE STATUS:: Full Code INSURANCE COVERAGE / FINANCIAL ISSUES:: BS. Medicare CURRENT HOME/COMMUNITY SERVICES/EQUIPMENT:: [facility] services. Disability PRIMARY CARE PHYSICIAN:: Dr. Chen POTENTIAL DISCHARGE NEEDS:: Inpatient psych treatment. PCP follow up, [facility] support. Inpatient vs outpatient ortho consult. Transportation PATIENT/FAMILY EDUCATION NEEDS:: Review discharge instructions and plan to follow up with community providers. Discuss ask me three. TRANSPORTATION:: to be determined by dispo PLAN:: Júnior is admitted to [facility] following an intentional medication overdose with SI and finger fracture. Pt remains on SI precautions with 1:1 patient observeration, while awaiting medical clearance and screening by [facility] plug machine operator. Discharge planning conciderations will be based on [facility] assessment and recommendations. In addition, Júnior will need an inpatient vs. outpatient Ortho Consult.
[2022-10-08] MEDS: Acetaminophen 325 MG TAB PO (16:07)
[2022-10-09] MEDS: Acetaminophen 325 MG TAB PO (02:32)
[2022-10-09 02:53] VITALS: BP 98/64; PULSE 85; RESP 14; TEMP 36.4; O2SAT 97
[2022-10-09] MEDS: Cephalexin 500 MG CAP PO ×2 (07:59→11:55)
[2022-10-09] MEDS: Enoxaparin 40 MG/0.4 ML SYR SC (07:59)
[2022-10-09 08:24] VITALS: BP 106/67; PULSE 94; RESP 16; TEMP 36.8; O2SAT 97
--- NOTE | 2022-10-09 08:51 | PDOC.CMSAFE ---
- If Service Date Differs Date of service: 10/09/22 Time of Service: 08:51 Care Management Safety Plan Status: Voluntary - Reason for Wait Reason for Wait: Inpatient Admission Carolina Centeno) is a 22-year-old female who identifies as a male with a history of depression, OCD, previous suicide attempt with medication overdose, history of deliberate self cutting presented emergency department with suicidal ideation after having taken an overdose of his medications which include Abilify and Wellbutrin and then promptly followed by vomiting. Júnior resides with his mother. Júnior requires close monitoring and treatment for intentional OD and fractured right hand and finger abrasion. Once patient has been medically cleared and assessed by screener. If screener deems patient meets criteria for psychiatric stabilization CM will facilitate interdepartmental huddle with [facility] screener for safety planning considerations and meet with patient to review [facility] policy and safety plan, establish individual wishes for treatment and maintain patient rights. 10/09/22 Júnior is medically cleared for [facility] screening. CM notified [facility], they have availability to screen Júnior after 10am. CM will follow In the interim; please note safety plan below to guide patient care while awaiting further assessment in the ED. SAFETY PLAN: 1. Will remain on suicide precautions and in paper clothes. 2. Will remain in room under direct supervision of one-on-one staff at all times provided by PIPER, DIESEL POWER MECHANIC pre press operator. 3. May have paper cups, plates, finger foods as well as a cardboard spoon with which to eat meals. 4. Follow [facility] Management of the Admitted Behavioral Health Patient policy. 5. Personal care: Comfort bath system only at this time. 6. Bathroom privileges: with escort in ED. Available in room without limitation on Med/Surg. 6. No personal belongings at this time; per RN discretion. 7. No visitors at this time. 8. Phone contact limited to legal contact and pts mother Ophelia Cuellar, at RN discretion. 9. Activities: Music tablet per RN discretion. Med/Surg: Television and remote available at RN discretion. 10. Due to VOLUNTARY status, if patient wishes to leave [facility], staff will contact [facility] Crisis Screener ([phone]) and On-Call Saloon Keeper ([phone]) as soon as possible. In the event of elopement, notify [facility] Police ([phone]). If deemed appropriate for inpatient psychiatric care, safety plan will be established with patient, and care team, to adhere to patient goals, identify restrictions based on behavioral status, address nutrition, and determine allowed personal belongings, tools for hygiene and personal care. As well plan will determine level of activity including ambulation, level of supervision, visitors, and determine privileges based on level of acuity, behaviors and level of engagement by patient.
--- NOTE | 2022-10-09 08:56 | CMPROGNOTE_ITS ---
- If Service Date Differs Date of service: 10/09/22 Time of Service: 08:56 Care Management Progress Note S/O: Júnior is medically cleared and screened by [facility]. A safety plan to discharge home with close community follow up is established with pt, mom and [facility]. A: 22 year old female identifies as male is admitted to [facility] on 10/07/22 for Intentional overdose of drug in tablet form, Right finger fracture and abrasion P: Júnior is admitted to [facility] following an intentional medication overdose with SI and finger fracture. Pt remains on SI precautions with 1:1 patient observeration, while awaiting medical clearance and screening by [facility] help desk rep. Discharge planning conciderations will be based on [facility] assessment and recommendations. In addition, Júnior will need an inpatient vs. outpatient Ortho Consult.
--- NOTE | 2022-10-09 08:56 | PDOC.CMPRO ---
- If Service Date Differs Date of service: 10/09/22 Time of Service: 08:56 Care Management Progress Note S/O: Júnior is medically cleared and screened by [facility]. A safety plan to discharge home with close community follow up is established with pt, mom and [facility]. A: 22 year old female identifies as male is admitted to [facility] on 10/07/22 for Intentional overdose of drug in tablet form, Right finger fracture and abrasion P: Júnior is admitted to [facility] following an intentional medication overdose with SI and finger fracture. Pt remains on SI precautions with 1:1 patient observeration, while awaiting medical clearance and screening by [facility] otc clerk. Discharge planning conciderations will be based on [facility] assessment and recommendations. In addition, Júnior will need an inpatient vs. outpatient Ortho Consult.
[2022-10-09 11:40] VITALS: BP 106/65; PULSE 89; RESP 16; TEMP 36.5; O2SAT 95
--- NOTE | 2022-10-09 12:58 | W.PM.DS.N ---
Date of service: 10/09/22 Time of Service: 12:59 DS: Diagnosis Discharge Diagnosis (1) Intentional overdose of drug in tablet form: Status: Acute (2) Fracture of finger of right hand: Status: Acute (3) Abrasion of finger, right: Status: Acute Discharge Plan Disposition Patient Disposition: Home Condition: Stable Discharge Details Reason For Visit: Suicidal Ideation, Intentional Drug Overdose Admit Date/Time: 10/08/22 01:20 Admit Provider: Jesus Alanis Attending Provider: Jesus Alanis Primary Care Provider: Frank Richter Hospital Course Hospital Course: this is 22-year-old female identifies as a male with a history of depression, OCD, previous suicide attempt with medication overdose, history of deliberate self cutting presented emergency department with suicidal ideation after having taken an overdose of his medications which include Abilify and Wellbutrin and then promptly followed by vomiting.? This happened about 1 hour prior to presentation to the emergency department.? Patient lives with his parents mother confirm with the emergency room doctor that the patient took 1 weeks worth of Abilify 5 mg daily as well as 2 different forms of bupropion including 150 mg extended release and bupropion 100 mg sustained-release.? Patient's mother found a bottle of hydroxyzine but patient endorsed that he did not take this.? On arrival patient was hypertensive BP 140/92 and tachycardic with heart rate in the 120s.? Patient was awake alert and answering questions.? Patient admitted after taking the overdose that he punched the ground with his hand he was found to have skin avulsions and abrasions to right hand involving the right third through fifth PIP joints.? X-ray image showed questionable minimally displaced avulsion fracture at the third middle phalanx medial proximal aspect and distal phalanx medial distal aspect.? There is soft tissue swelling the second third fourth and fifth fingers.? ECG was obtained demonstrates sinus tachycardia rate of 103 bpm QT interval 327 ms QTc interval 428 ms.? Normal P wave and T wave axes.? Emergency room provider called poison control who advised her that the patient could sustain seizures from the overdose of Wellbutrin as well as cardiac arrhythmias due to QRS and QTc prolongation.? Advised observation for 24 hours on monitor on telemetry monitoring with serial EKGs.? They also expressed concern of MANAGER CONTENT depression and tachycardia if the patient took a hydroxyzine overdose.? Urine drug screen was positive for THC but otherwise negative for other drugs of abuse including barbiturates methadone opiates tricyclic antidepressants and feta means benzodiazepines and cocaine.? Acetaminophen level was less than 2 mcg/mL and salicylate level was less than 2.8 mg/dL.? Patient's wounds were dressed on the right hand finger was placed in a splint and patient was given a dose of Keflex.? Patient's tetanus had been updated as recent as 2014.? Patient's vital signs were stable prior to admission patient was admitted to the medical/surgical floor on continued telemetry monitoring with repeat EKG to be done this morning. patient admitted to med/surg and remained hemodynamcially stable. no seizure activity noted, no excessive sedation, vitals remained stable. no behavioral issues. eating and drinking well. medically cleared after 30 + hours and evaluated by mental health. plan is for discharge to home with safety plan and outpatient follow up with mental health. discharged to home with no services. discharge discussed with DR Bell. ? Home Meds and New Rx's Prescriptions: New cephalexin 500 mg Capsule 500 mg PO QID Qty: 20 0RF ibuprofen 800 mg Tablet 800 mg PO TID PRN PRNQty: 0 0RF acetaminophen 325 mg Tablet 325 - 650 mg PO Q4H PRN PRNQty: 0 0RF Continued aripiprazole 5 mg Tablet 5 mg PO DAILY bupropion HCl 150 mg Tablet Extended Release 24 Hr 150 mg PO QAM bupropion HCl 100 mg Tablet Sustained-Release 12 Hr 100 mg PO QAM hydroxyzine pamoate 25 mg Capsule 25 mg testosterone cypionate 200 mg/mL oil 1 applic IM QWEEK Patient Comments: INJECT 0.5ML INTO THE MUSCLE ONCE WEEKLY Discharge Instructions Instructions: Finger Fracture (DC), Help Prevent Suicide (DC), Suicide Prevention (DC) Additional Instructions: Take antibiotics as directed even if you feel better this is to prevent infection in your finger Take all your medications as prescribed only Follow safety plan as reviewed with mental health Maintain finger splint as directed until you follow-up with orthopedics Routine skin care washing daily with warm soapy water can apply dry dressing to protect monitor for signs of infection and report Referrals: Frank Richter NP [Primary Care Provider] - Nitesh Gilliland MD [ [facility] STAFF PHYSICIAN] - Activity:: Activity as Tolerated Equipment/Supplies:: No Equipment Needed Diet:: As Tolerated Discharge Orders Discharge Orders: Discharge Order (Routine); Ordered 10/09/22 Ordered By: Kim Rudolph DS: Summary Time Spent with Patient providing and/or coordinating discharge services: Less than 30 minutes Status at Discharge Functional status at discharge: independent ambulation Overall status at discharge: patient is back to baseline Mental Status: mental status grossly normal Speech and Movement: speech and movement normal Mood: congruent mood Affect: normal affect Exam Const General: cooperative, comfortable and no acute distress Nutritional Appearance: average body habitus Orientation: alert, awake and oriented x3 HENMT Head: normal to inspection, normocephalic and atraumatic Mouth: oral mucosae normal Resp Effort & Inspection: normal respiratory effort Cardio Rate: regular rate Rhythm: regular rhythm GI Inspection: normal to inspection Neuro General: patient alert, patient awake and patient oriented x3 Psych Mental Status: mental status grossly normal Speech and Movement: speech and movement normal Mood: congruent mood Affect: normal affect DS: Data Vitals/I&O Vitals and I&O: Vital Signs Temperature 36.5 C 10/09/22 11:40 Temperature Source Tympanic 10/09/22 11:40 Pulse 89 10/09/22 11:40 Pulse Rhythm Regular 10/09/22 08:00 Pulse 81 10/08/22 02:10 Respiratory Rate 16 10/09/22 11:40 Respiratory Effort Normal, Non-Labored 10/09/22 08:00 Respiratory Depth Normal 10/09/22 08:00 Respiratory Pattern Normal 10/09/22 08:00 Blood Pressure 106/65 10/09/22 11:40 Blood Pressure Mean 70 10/08/22 02:01 Blood Pressure Position Sitting 10/07/22 22:31 Pulse Oximetry 95 10/09/22 11:40 Oxygen Delivery Method Room Air 10/09/22 11:40 Oxygen Flow Rate 0 10/09/22 11:40 Pain Level 6 10/09/22 08:24 Intake & Output 10/08/22 10/09/22 10/09/22 23:59 11:59 23:59 Weight 68.42 kg 66.1 kg Other: Urine Appearance Clear Clear Comment pt stated she voided x1 voiding independently Patient voiding independently at this time. 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 Depression (Chronic) 09/2021-Suidice attempt, clonidine overdose, hospitalized at [facility]-required short term intubation Tonsillar hypertrophy (Acute) Sensorineural hearing loss, unilateral, right ear, with unrestricted hearing on the contralateral side (Acute) Medical History Deliberate self-cutting Depression OCD (obsessive compulsive disorder) Suicide attempt Transgender Surgical History No significant past surgical history Family History Mother Essential hypertension Heart disease Hyperlipidemia Father COPD (chronic obstructive pulmonary disease) Sister Asthma Brother No problems noted. Grandfather Diabetes Essential hypertension Heart disease Hyperlipidemia Grandfather Neoplasm LUNG Grandmother No problems noted. Grandmother Diabetes Essential hypertension Heart disease Hyperlipidemia Neoplasm BREAST Stroke Social History Smoking/Tobacco Use Status: Never Smoking risk assessment performed?: Yes Alcohol Intake: never Drug use: Never Substance use type: marijuana Do you feel safe at home: Yes (Lives alone) Do you feel safe in your relationship?: Yes Additional Social history: Patient unable to give further details at this time. Time Spent with Patient Time Spent with Patient: <45 minutes Time was spent: preparing to see the patient(eg.review tests), ordering medications,tests, procedures, referring, communicating with other health home health caregiver and indepentently interpreting results
--- NOTE | 2022-10-09 13:15 | CMDISCH_ITS ---
- If Service Date Differs Date of service: 10/09/22 Time of Service: 13:15 LACE Index Scoring Tool - Questions: Length of Stay (in days): 2 Acuity (Admit via E.D.?): Yes E.D. Visits: 5 - Answers: Total Score: 9 Risk of Readmission: Low Risk Care Management Discharge Reason for Hospitalization: Intentional overdose of drug in tablet form, Right finger fracture and abrasion Discharge Plan: Júnior is medically cleared for discharge and a safety plan to discharge home is established with [facility]. He will follow up with his community providers and discharge plan of care as prescribed. Transportation is coordinated by pts mom. Patient/Family Education Needs: Review discharge instructions, limitations and plan for close community follow up. Discuss ask me three.
--- NOTE | 2022-10-09 14:13 | PDOC.MHCN ---
Date of service: 10/09/22 Time of Service: 10:55 PHQ-9 Over the last 2 weeks, how often have you been bothered by any of the following problems? 1. Little interest or pleasure in doing things: several days 2. Feeling down, depressed, or hopeless: several days 3. Trouble falling or staying asleep, or sleeping too much: nearly every day 4. Feeling tired or having little energy: not at all 5. Poor appetite or overeating: nearly every day 6. Feeling bad about yourself - or that you are a failure or have let yourself and your family down: several days 7. Trouble concentrating on things, such as reading the newspaper or watching television: not at all 8. Moving or speaking so slowly that other people could have noticed? - Or the opposite - being so fidgety or restless that you have been moving around a lot more than usual: several days 9. Thoughts that you would be better off or of hurting yourself in some way: several days Total score: 11 Source: Developed by Drs. Shmuel Cleaning, Kathy Meehan, Shiv Rich and colleagues, with an educational aries from [employer]. Suicide Severity Rate CSSRS Have you wished you were or wished you could go to sleep and not wake up?: Yes Have you actually had any thoughts of killing yourself?: Yes CSSRS2 Have you been thinking about how you might do this?: Yes Have you had these thoughts and had some intention of acting on them?: Yes Have you started to work out or worked out the details of how to kill yourself? Do you intend to carry out this plan?: No CSSRS3 Have you ever done anything, started to do anything or prepared to do anything to end your life?: Yes CSSRS4 Was this within the past three months?: Yes Screening Score Total Score: 8 Screening: Positive Mental Health Emergency Note Release [facility] release signed:: Yes Reason for Visit Client presented to ED on 10.07 after [facility] dispatch called [facility] stating that they had received a call from a [phone] call responder who stated that client is currently at [facility] and is currently endorsing SI with intent and plan. Client reports he took 1 weeks' worth of Abilify 5 mg, bupropion 150 mg extended release and bupropion 100 mg sustained release. Per poison control, client was to be monitored for 24 hrs. until medically cleared. Client was medically cleared as of 9 am on 10/09. Client was assessed by YULIANA Lewis and john radio script writer for F2F screening on 10/09. In the last 2 weeks has the pt presented for ES prior to today?: No Client Information Client is: Adult Outpatient Well Housed: Yes Non Suicidal Self Injury Current: No History: yes, Client denies currently endorsing NSSI. Client denies intent/plan. Client reports past hx of NSSI. Client reports last engaging in self-cutting a year prior. Client reports hx of cutting wrists with a razor blade. Safety Risk/Harm to Self or Others Current Ideation to Harm Self or Others: No Asssessment/Mental Status Appearance: Disheveled Attitude: Guarded and Other (hesitant ) Behavior: Unremarkable Speech: Soft and Slow Affect: Cogruent with mood Mood: Depressed and Anxious Thought process: Unremarkable Hallucinations: No (Client denies currently experiencing cain. However, client reports on occasion hearing whispers/voices.) Delusions: No evidence Attention: Unremarkable Perception: Not impaired Orientation: Fully orientated Memory: Intact Insight: Fair Judgement: Fair Neurovegetative Symptoms Sleep: Increase (Client reports increase in sleep habits since presenting to the ED on 10/07) Appetitie: No change (Client reports not eating since presenting to the ED on 10/07. ) Interests: No change Energy: No change Libido: Not applicable Impression Client is a 22 y/o transgender female who is transitioning to male and goes by the name of Júnior. Client was assessed by this radio script writer and YULIANA Lewis in-person on 10/09 once client was medically cleared. Client reports presenting to the ED on 10.07 after taking, a weeks' worth of his prescribed rx's. Client reports immediately after taking the medication being sick and throwing up. Client denies taking the medications with the intention to . Client reports taking the medications with the intention to harm himself. When asked what took place for client on the day medication was ingested, client reports he was having a bad day in result to someone threatening to post things on social media and the passing of her grandmother a few days ago. Client reports after taking medications and throwing up, client went for a walk. Client then proceeded to walk to [facility], where client called [phone]. It should be noted when YULIANA Lewis spoke to client via phone on 10/07, client denied taking medications. During phone interaction with YULIANA Lewis on 10/07, client reports endorsing with intent/plan 05/28. Client disclosed they engaged in self-harm via punching the ground. Client reports past hx. of NSSI of self-cuting. Client denies currently endorsing NSSI. Client denies intent/plan. Client reports last time engaging in NSSI, was a year prior. Client denies currently endorsing SI. Client denies intent/plan. Client reports past hx of SI and multiple past suicide attempts. Client reports overdosing on medications a year ago, but denies taking the medication with the intention to by suicide. Client reports her living situation changed in April of 2022. Client reports currently residing with her mother Ophelia, sister Delisa, her step father Jose Carlos and her niece or nephew who is under the age of 1. Client identifies all mentioned family members as natural supports/deterrents to her. Resources Reosurces reviewed and given:: [phone] and NK (Emergency Services ) Plan/Disposition Recommended Disposition: [facility] Services (Therapy/ Med. Provider) [facility] Services: Therapy and Other (Med Provider ). Plan: Client declined Crisis bed admission/seeking placement for IP MH tx at this time. Client reports, she does not feel she needs IP services at this time. Client reports past hx of crisis bed admissions to not be helpful to her. Client reports past hx of BR to have been a positive experience, however reports she would like to be home and receive the support of her family, in addition to engaging in OP services through [facility]. This radio script writer and ESC Danielle Lewis connected with client's mother Ophelia via phone at 12:25 pm. Discussion of SP with client's identified supports took place. Client and client's mother Ophelia report they feel as if they can keep the client safe at home upon discharge from hospital per proactive SP in place. Per SP in place, client is to complete the following steps: 1. complete check-in calls with ES through 10/12 between 3-4 pm, starting on 10/10 per client's request. 2. Reengage in Therapy sessions through [facility]. 3. Schedule follow-up appointment with Med provider through [facility]. Person reported agreement to plan: Yes Reports/communication Outcome discussed with: ED/Personnel (Client's Manager Sales Maile Marcos )
== END 2022-10-09 14:10 | disposition home or self-care (01) | DRG 918 ==
LOC: ER 10-08 02:02 → MS 10-08 02:23
PROVIDERS: Admitting Provider Internal Medicine; Emergency Provider Physician Assistant; PCP Nurse Practitioner Family; Visit Provider Internal Medicine
DX: T50.902A Poisoning by unspecified drugs, medicaments and biological substances, intentional self-harm, initial encounter (principal); T43.592A Poisoning by other antipsychotics and neuroleptics, intentional self-harm, initial encounter; T43.292A Poisoning by other antidepressants, intentional self-harm, initial encounter; I15.8 Other secondary hypertension; F64.0 Transsexualism; Z91.51 Personal history of suicidal behavior; F12.90 Cannabis use, unspecified, uncomplicated; R11.2 Nausea with vomiting, unspecified; W22.09XA Striking against other stationary object, initial encounter; S60.511A Abrasion of right hand, initial encounter; F32.A Depression, unspecified; F42.9 Obsessive-compulsive disorder, unspecified; S62.622A Displaced fracture of middle phalanx of right middle finger, initial encounter for closed fracture; S62.632A Displaced fracture of distal phalanx of right middle finger, initial encounter for closed fracture; R00.0 Tachycardia, unspecified
CPT/HCPCS: 80053; 80307; 81025; 93005; 96361; 96374; 99291; J1650; 73130; 80329; 81003; 83735; 84484; 85025; 93010; 99222; 99232; 99238; J0780